=== PATIENT | male | born 1945 | race Caucasian/White ===

== ENCOUNTER 2016-04-19 22:12 | Inpatient (IN) | payer MEDICARE, BC ==
[2016-04-19 22:50] LABS: Anisocytosis Slight; Basophils % (A) 0 %; CH 25.7; CHCM 31.3; Eosinophils % (A) 0 %; HCT 41.9 % (39.0-53.0); HDW 2.81; HGB 12.8 gm/dL (13.0-17.5); Hypochromasia Slight; Luc # (Auto) 0.13; Luc % (Auto) 1; Lymphocytes # (A) 1.3 k/uL (1.0-4.8); Lymphocytes % (A) 10 %; MCH 25.1 pg (25.0-35.0); MCHC 30.6 g/dL (31.0-37.0); MCV 82.3 fL (80.0-100.0); Mean Platelet Volume 6.8; Monocytes # (A) 0.5 k/uL (0-1.0); Monocytes % (A) 4 %; Neutrophils # (A) 10.6 k/uL (1.3-7.7); Neutrophils % (A) 84 %; RDW 16.4 % (11.5-15.5); WBC 12.7 k/uL (3.8-10.6); WBC (Perox) 12.77
--- NOTE | 2016-04-19 22:50 | ED ---
General Adult HPI - General Chief complaint: Upper Respiratory Infection Stated complaint: coughing up blood Time Seen by Provider: 04/19/16 22:17 Source: patient, family, EMS, RN notes reviewed Mode of arrival: EMS Limitations: altered mental status - History of Present Illness Initial comments: Patient is a pleasant 70-year-old male presenting to the emergency department for hemoptysis. Onset was today. Patient has had several episodes. No other areas of bleeding. Patient denies shortness of breath. Patient does take Coumadin for atrial fibrillation. No recent change in dosage. No fevers. No upper respiratory symptoms. Patient is a poor historian and majority of history is taken from family. - Related Data Home Medications Medication Instructions Recorded Confirmed Aspirin 325 mg PO DAILY 11/23/13 04/14/16 Cholecalciferol [Vitamin D3] 1 tab PO DAILY 11/23/13 04/14/16 Lovastatin 2 tab PO HS 11/23/13 04/14/16 Warfarin Sodium 2.5 mg PO DAILY 11/23/13 04/14/16 clonazePAM [KlonoPIN] 0.5 mg PO HS 11/23/13 04/14/16 Digoxin 250 mcg PO DAILY 04/14/16 04/14/16 Fludrocortisone [Florinef] 0.1 mg PO DAILY 04/14/16 04/14/16 Krill Oil 1,000 mg PO DAILY 04/14/16 04/14/16 Allergies Allergy/AdvReac Type Severity Reaction Status Date / Time Penicillins Allergy Rash/Hives Verified 04/14/16 08:56 Review of Systems ROS Statement: Those systems with pertinent positive or pertinent negative responses have been documented in the HPI. ROS Other: All systems not noted in ROS Statement are negative. Constitutional: Denies: fever, chills Eyes: Denies: eye pain ENT: Denies: ear pain Respiratory: Reports: cough, hemoptysis Cardiovascular: Denies: chest pain Endocrine: Denies: fatigue Gastrointestinal: Denies: abdominal pain Genitourinary: Denies: dysuria Musculoskeletal: Denies: back pain Skin: Denies: rash Neurological: Denies: weakness Past Medical History Past Medical History: Atrial Fibrillation, Chest Pain / Angina, COPD, Hyperlipidemia, Hypertension, Prostate Disorder Additional Past Medical History / Comment(s): FEELS WEAK History of Any Multi-Drug Resistant Organisms: None Reported Past Surgical History: Heart Catheterization, Pacemaker Additional Past Surgical History / Comment(s): CARDIOVERSION X2; [facility] [employer] Past Anesthesia/Blood Transfusion Reactions: No Reported Reaction Type of Cardiac Device: Permanent Pacemaker Device Placement Date:: 01/2013 Past Psychological History: No Psychological Hx Reported Smoking Status: Current every day smoker Past Alcohol Use History: Rare Past Drug Use History: None Reported - Past Family History Mother Family Medical History: No Reported History General Exam Limitations: no limitations General appearance: alert, in no apparent distress Head exam: Present: atraumatic Eye exam: Present: normal appearance, PERRL ENT exam: Present: normal oropharynx Neck exam: Present: normal inspection Respiratory exam: Present: normal lung sounds bilaterally Cardiovascular Exam: Present: irregular rhythm GI/Abdominal exam: Present: soft. Absent: tenderness Extremities exam: Present: normal inspection. Absent: pedal edema, calf tenderness Neurological exam: Present: alert Psychiatric exam: Present: normal affect, normal mood Skin exam: Absent: rash Course Vital Signs 04/19/16 22:26 Temperature 97.8 F Pulse Rate 102 H Respiratory 16 Rate Blood Pressure 173/91 O2 Sat by Pulse 97 Oximetry EKG Findings - EKG Comments: EKG Findings:: A. fib with a rate of 97. QRS 80. QT 314. QTC 398. Normal axis. Normal QRS. Nonspecific ST-T. Motion artifact is present. Medical Decision Making - Medical Decision Making Patient reevaluated and updated. Case discussed with practitioner Evon, who will admit for Dr. Real, covering for Dr. Antunez - Lab Data Result diagrams: 04/19/16 22:30 04/19/16 22:30 Lab Results 04/19/16 04/19/16 04/19/16 Range/Units 22:30 22:30 22:30 WBC 12.7 H (3.8-10.6) k/uL RBC 5.10 (4.30-5.90) m/uL Hgb 12.8 L (13.0-17.5) gm/dL Hct 41.9 (39.0-53.0) % MCV 82.3 (80.0-100.0) fL MCH 25.1 (25.0-35.0) pg MCHC 30.6 L (31.0-37.0) g/dL RDW 16.4 H (11.5-15.5) % Plt Count 249 (150-450) k/uL Neutrophils % 84 % Lymphocytes % 10 % Monocytes % 4 % Eosinophils % 0 % Basophils % 0 % Neutrophils # 10.6 H (1.3-7.7) k/uL Lymphocytes # 1.3 (1.0-4.8) k/uL Monocytes # 0.5 (0-1.0) k/uL Eosinophils # 0.0 (0-0.7) k/uL Basophils # 0.0 (0-0.2) k/uL Hypochromasia Slight Anisocytosis Slight PT 36.7 H (9.0-12.0) sec INR 3.8 (<1.1) APTT 38.4 H (22.0-30.0) sec Sodium 141 (137-145) mmol/L Potassium 3.6 (3.5-5.1) mmol/L Chloride 104 (98-107) mmol/L Carbon Dioxide 25 (22-30) mmol/L Anion Gap 12 mmol/L BUN 14 (9-20) mg/dL Creatinine 0.80 (0.66-1.25) mg/dL Est GFR (MDRD) Af Amer >60 (>60 ml/min/1.73 sqM) Est GFR (MDRD) Non-Af >60 (>60 ml/min/1.73 sqM) Glucose 95 (74-99) mg/dL Calcium 9.1 (8.4-10.2) mg/dL Total Bilirubin 1.1 (0.2-1.3) mg/dL AST 55 (17-59) U/L ALT 55 (21-72) U/L Alkaline Phosphatase 96 (38-126) U/L Total Protein 6.4 (6.3-8.2) g/dL Albumin 2.9 L (3.5-5.0) g/dL Urine Color Urine Appearance (Clear) Urine pH (5.0-8.0) Ur Specific [place] (1.001-1.035) Urine Protein (Negative) Urine Glucose (UA) (Negative) Urine Ketones (Negative) Urine Blood (Negative) Urine Nitrate (Negative) Urine Bilirubin (Negative) Urine Urobilinogen (<2.0) mg/dL Ur Leukocyte Esterase (Negative) Urine RBC (0-5) /hpf Urine WBC (0-5) /hpf Calcium Oxalate Crystal (None) /hpf Urine Bacteria (None) /hpf Urine Mucus (None) /hpf 04/19/16 Range/Units 22:30 WBC (3.8-10.6) k/uL RBC (4.30-5.90) m/uL Hgb (13.0-17.5) gm/dL Hct (39.0-53.0) % MCV (80.0-100.0) fL MCH (25.0-35.0) pg MCHC (31.0-37.0) g/dL RDW (11.5-15.5) % Plt Count (150-450) k/uL Neutrophils % % Lymphocytes % % Monocytes % % Eosinophils % % Basophils % % Neutrophils # (1.3-7.7) k/uL Lymphocytes # (1.0-4.8) k/uL Monocytes # (0-1.0) k/uL Eosinophils # (0-0.7) k/uL Basophils # (0-0.2) k/uL Hypochromasia Anisocytosis PT (9.0-12.0) sec INR (<1.1) APTT (22.0-30.0) sec Sodium (137-145) mmol/L Potassium (3.5-5.1) mmol/L Chloride (98-107) mmol/L Carbon Dioxide (22-30) mmol/L Anion Gap mmol/L BUN (9-20) mg/dL Creatinine (0.66-1.25) mg/dL Est GFR (MDRD) Af Amer (>60 ml/min/1.73 sqM) Est GFR (MDRD) Non-Af (>60 ml/min/1.73 sqM) Glucose (74-99) mg/dL Calcium (8.4-10.2) mg/dL Total Bilirubin (0.2-1.3) mg/dL AST (17-59) U/L ALT (21-72) U/L Alkaline Phosphatase (38-126) U/L Total Protein (6.3-8.2) g/dL Albumin (3.5-5.0) g/dL Urine Color Yellow Urine Appearance Cloudy (Clear) Urine pH 5.5 (5.0-8.0) Ur Specific [place] 1.018 (1.001-1.035) Urine Protein Trace H (Negative) Urine Glucose (UA) Negative (Negative) Urine Ketones Negative (Negative) Urine Blood Small H (Negative) Urine Nitrate Negative (Negative) Urine Bilirubin Negative (Negative) Urine Urobilinogen 2.0 (<2.0) mg/dL Ur Leukocyte Esterase Negative (Negative) Urine RBC 9 H (0-5) /hpf Urine WBC 6 H (0-5) /hpf Calcium Oxalate Crystal Few H (None) /hpf Urine Bacteria Rare H (None) /hpf Urine Mucus Few H (None) /hpf - Radiology Data Radiology results: image reviewed (Chest x-ray shows moderate right-sided effusion) Disposition Clinical Impression: Hemoptysis, Pleural effusion Disposition: ADMITTED IP TO THIS HOSP
[2016-04-19 22:58] LABS: Partial Thromboplastin Time 38.4 sec (22.0-30.0)
[2016-04-19 23:00] LABS: ALT 55 U/L (21-72); AST 55 U/L (17-59); Alkaline Phosphatase 96 U/L (38-126); Anion Gap 12 mmol/L; Blood Urea Nitrogen 14 mg/dL (9-20); Calcium 9.1 mg/dL (8.4-10.2); Carbon Dioxide 25 mmol/L (22-30); Chloride 104 mmol/L (98-107); Glucose 95 mg/dL (74-99); INR 3.8 (<1.1); Non-African American GFR(MDRD) >60 (>60 ml/min/1.73 sqM); Potassium 3.6 mmol/L (3.5-5.1); Prothrombin Time 36.7 sec (9.0-12.0); Sodium 141 mmol/L (137-145); Total Bilirubin 1.1 mg/dL (0.2-1.3); Total Protein 6.4 g/dL (6.3-8.2)
[2016-04-19 23:16] LABS: Creatine Kinase <20 U/L (55-170)
--- NOTE | 2016-04-19 23:19 | XR ---
Exam: XR CXR 2 VIEWS Comparison: No comparison available at the time of interpretation. History: Reason: difficulty breathing Technique: CHEST FRONTAL + LATERAL FINDINGS: Vascular stents in the mid abdomen. leads of left pacer project over the regions of right atrium and right ventricle. Moderate to large right pleural effusion with compressive atelectasis. Cardiomediastinal contour and hilar structures are within normal limits. Osseous structures are within normal limits for the patient's age. IMPRESSION: Moderate to large right pleural effusion with compressive atelectasis.
[2016-04-19 23:25] LABS: Appearance,Urine Cloudy (Clear); Bacteria,Urine Rare /hpf; Bilirubin,Urine Negative (Negative); Calcium Oxalate Crystals,Urine Few /hpf; Glucose,Urine (UA) Negative (Negative); Ketones,Urine Negative (Negative); Leukocyte Esterase,Urine Negative (Negative); Mucus,Urine Few /hpf; Nitrite,Urine Negative (Negative); PH, Urine 5.5 (5.0-8.0); Particle Count 7201; Protein,Urine Trace (Negative); RBC,Urine 9 /hpf (0-5); Specific Gravity,Urine 1.018 (1.001-1.035); UA Billing (MACRO vs. MICRO) MICRO; WBC,Urine 6 /hpf (0-5)
[2016-04-19 23:30] LABS: Creatine Kinase MB 0.4 ng/mL (0.0-2.4); Troponin I 0.012 ng/mL (0.000-0.034)
[2016-04-19] MEDS ORDERED: NALOXONE 0.4 MG/ML 1 ML VIAL IV PRN (23:31)
[2016-04-19] MEDS ORDERED: PHYTONADIONE 2 MG in SODIUM CHLORIDE 0.9% 50 ML IVPB STA (23:33)
[2016-04-19] MEDS ORDERED: RX INFO: IV CONTRAST WAS GIVEN 1 EACH MISC MISCELLANE PRN (23:34)
--- NOTE | 2016-04-20 00:56 | CT ---
EXAM: CT Chest With Intravenous Contrast. CLINICAL HISTORY: Reason: Hemoptysis TECHNIQUE: Axial computed tomography images of the chest with intravenous contrast. Coronal and sagittal reformats were obtained. CTDI is 8.00 MGy and DLP is 337.70 MGy-cm COMPARISON: Chest x-ray 04/19/2016 FINDINGS: Lungs: New heterogeneous hyperdense masslike opacity in the posterior right lower lobe,, measuring approximately 8.7 x 6.3 cm (4/28). Findings are suspicious for pulmonary hemorrhage. Adjacent right lower lobe opacities, favor atelectasis but correlate for pneumonia. Centrilobular emphysema. Pleural space: New moderate right pleural effusion with simple fluid attenuation. Heart: Cardiomegaly. Small pericardial effusion. Bones/joints: No acute fracture. Soft tissues: Bilateral gynecomastia. Vasculature: Partially imaged [id number] stent graft. No thoracic aortic aneurysm. Lymph nodes: Unremarkable. No enlarged lymph nodes. Spleen: Splenomegaly. Kidneys and ureters: Several hypodensities in the kidneys, some compatible with cysts and some too small to characterize. IMPRESSION: 1. New heterogeneous hyperdense masslike opacity in the posterior right lower lobe, measuring approximately 8.7 x 6.3 cm (4/28). Findings are suspicious for pulmonary hemorrhage. 2. New moderate right pleural effusion with simple fluid attenuation. 3. Cardiomegaly. Small pericardial effusion. [employer] 04/20/16 00:59 Call Nurse GLENNA Saldivar
[2016-04-20 06:55] LABS: Glucose,Whole Blood 87 mg/dL (75-99)
[2016-04-20 07:21] LABS: Anisocytosis Slight; Basophils % (A) 0 %; CHCM 31.8; Eosinophils % (A) 0 %; HCT 36.4 % (39.0-53.0); HGB 11.4 gm/dL (13.0-17.5); Hypochromasia Slight; Luc # (Auto) 0.18; Luc % (Auto) 2; Lymphocytes # (A) 1.2 k/uL (1.0-4.8); Lymphocytes % (A) 11 %; MCH 25.8 pg (25.0-35.0); MCHC 31.5 g/dL (31.0-37.0); MCV 82.1 fL (80.0-100.0); Mean Platelet Volume 7.4; Monocytes # (A) 0.5 k/uL (0-1.0); Monocytes % (A) 5 %; Neutrophils # (A) 8.4 k/uL (1.3-7.7); Neutrophils % (A) 82 %; RBC 4.43 m/uL (4.30-5.90); RDW 16.4 % (11.5-15.5); WBC 10.2 k/uL (3.8-10.6); WBC (Perox) 11.01
[2016-04-20 07:36] LABS: INR 2.2 (<1.1); Prothrombin Time 20.7 sec (9.0-12.0)
[2016-04-20] MEDS: PANTOPRAZOLE 40 MG/10 ML VIAL IV SCH (09:12)
[2016-04-20 12:04] LABS: Glucose,Whole Blood 87 mg/dL (75-99)
[2016-04-20] MEDS ORDERED: RX INFO: IV CONTRAST WAS GIVEN 1 EACH MISC MISCELLANE PRN (12:07)
[2016-04-20] MEDS ORDERED: LEVOFLOXACIN 500MG-D5W PMX 500 MG in DEXTROSE/WATER 1 100ML.BAG IVPB SCH (12:15)
[2016-04-20] MEDS: DIGOXIN 250 MCG TAB PO SCH (13:03)
[2016-04-20] MEDS: SODIUM CHLORIDE 0.9% 1,000 ML IV SCH (13:03)
[2016-04-20] MEDS: FLUDROCORTISONE 0.1 MG TAB PO SCH (13:03)
--- NOTE | 2016-04-20 14:24 | P.CNPUL ---
History of Present Illness Consult date: 04/20/16 Reason for consult: pleural effusion History of present illness: Every 1-year-old male patient, known history of COPD, known history of chronic smoking, coming in with few episodes of hemoptysis. The patient has lost approximately 40 pounds over the past 5 months. He is coughing out minimal amount of mucus on and off however his condition had changed when he started having some hemoptysis. There is a vague history of trauma and fall yet there is no major injury over his chest nor there is any area of bruising. He is a poor historian in general. A CAT scan of the chest was done in the emergency department and it showed a loculated right-sided pleural effusion and there is a cutoff sign in the distal right mainstem bronchus/bronchus intermedius area and New heterogeneous hyperdense masslike opacity in the posterior right lower lobe, measuring approximately 8.7 x 6.3 cm . This finding is suspicious for lung cancer and the possibility of pulmonary hemorrhage is less likely. Noted the patient's INR was at 3.8 at time of admission is currently down to 2.2. We' ll hold off his anticoagulation and given vitamin K. The plan is to proceed with a diagnostic thoracentesis of the right lung to be followed by bronchoscopy. He has no significant shortness of breath at this point. He is on no oxygen. No chills. No fever. No chest pain. His mentation is alert oriented to place and people Review of Systems Further review of system was done and the positive findings are almost above in history of present illness. The patient has lost significant amount of weight that is estimated to be at least 40 pounds over the past 6 months to a year. Past Medical History Past Medical History: Atrial Fibrillation, COPD, Hyperlipidemia, Hypertension, Prostate Disorder Additional Past Medical History / Comment(s): COPD, hypertension, hyperlipidemia , restless leg syndrome, chronic 2 fibrillation, long-term articulation with warfarin, REM behavioral disorder, history of pacemaker insertion. History of Any Multi-Drug Resistant Organisms: None Reported Past Surgical History: Heart Catheterization, Pacemaker Additional Past Surgical History / Comment(s): CARDIOVERSION X2; [employer] Past Anesthesia/Blood Transfusion Reactions: No Reported Reaction Type of Cardiac Device: Permanent Pacemaker Device Placement Date:: 01/2013 Past Psychological History: No Psychological Hx Reported Smoking Status: Current every day smoker Past Alcohol Use History: Rare Past Drug Use History: None Reported - Past Family History Mother Family Medical History: No Reported History Medications and Allergies Home Medications Medication Instructions Recorded Confirmed Type Cholecalciferol [Vitamin D3] 1,000 units PO DAILY 11/23/13 04/20/16 History Lovastatin 80 mg PO HS 11/23/13 04/20/16 History Warfarin Sodium 2.5 mg PO DAILY 11/23/13 04/20/16 History clonazePAM [KlonoPIN] 0.5 mg PO HS 11/23/13 04/20/16 History Digoxin 250 mcg PO DAILY 04/14/16 04/20/16 History Fludrocortisone [Florinef] 0.1 mg PO DAILY 04/14/16 04/20/16 History Krill Oil 1,000 mg PO DAILY 04/14/16 04/20/16 History Aspirin EC [Ecotrin Low Dose] 81 mg PO DAILY 04/20/16 04/20/16 History Allergies Allergy/AdvReac Type Severity Reaction Status Date / Time Penicillins Allergy Rash/Hives Verified 04/20/16 08:26 Physical Exam Vitals: Vital Signs Temp Pulse Pulse Resp BP BP Pulse Ox 04/20/16 08:00 15 04/20/16 07:00 98.7 F 87 18 122/65 95 04/20/16 00:56 98.3 F 97 16 141/64 98 04/19/16 23:49 97 16 135/78 98 Intake and Output 04/19/16 04/20/16 04/20/16 22:59 06:59 14:59 Other: Voiding Method Urinal # Voids 2 2 Head exam was generally normal. There was no scleral icterus or corneal arcus. Mucous membranes were moist.Neck was supple and without jugular venous distension, thyromegaly, or carotid bruits. Carotids were easily palpable bilaterally. There was no adenopathy. Lung sounds are diminished in the right lung base along with some dullness to percussion.Cardiac exam revealed the PMI to be normally situated and sized. The rhythm was regular and no extrasystoles were noted during several minutes of auscultation. The first and second heart sounds were normal and physiologic splitting of the second heart sound was noted. There were no murmurs, rubs, clicks, or gallops.Abdominal exam revealed normal bowel sounds. The abdomen was soft, non-tender, and without masses, organomegaly, or appreciable enlargement of the abdominal aorta.Examination of the extremities revealed easily palpable radial, femoral and pedal pulses. There was no cyanosis, clubbing or edema. Results - Laboratory Findings CBC and BMP: 04/20/16 06:52 04/19/16 22:30 PT/INR, D-dimer PT 20.7 sec (9.0-12.0) H 04/20/16 06:50 INR 2.2 (<1.1) 04/20/16 06:50 Abnormal lab findings: Abnormal Labs 04/20/16 04/20/16 06:50 06:52 Hgb 11.4 L Hct 36.4 L RDW 16.4 H Neutrophils # 8.4 H PT 20.7 H - Diagnostic Findings Chest x-ray: image reviewed CT scan - chest: image reviewed Assessment and Plan Plan: Impression 1 complex heterogeneous right lung mass with a cutoff sign of the distal right mainstem bronchus/bronchus intermedius and a loculated right-sided pleural effusion. The patient presented with hemoptysis. Rule out primary bronchogenic cancer causing obstruction of distal right mainstem bronchus/ bronchus intermedius. Rule out malignant pleural effusion. Less likely possibilities are traumatic hemorrhage within the pleural space. I am in favor of malignancies especially the patient has lost significant amount of weight and he has the risk factors. 2 COPD 3 hemoptysis 4 weight-loss 5 REM behavioral disorder 6 restless leg syndrome 7 BPH 8 chronic atrial fibrillation 9 COPD 10 hypertension 11 pacemaker insertion 12 dementia Plan Stop warfarin. Give the patient 10 of vitamin K. Reverse the coagulopathy. Obtain a consent for thoracentesis will be done tomorrow. This needs to be also followed up by bronchoscopy and airway inspection of the distal right mainstem bronchus. As the family is agreeable and the patient is agreeable to proceed with the procedures tomorrow the first being a right-sided thoracentesis. The priority will now be to reverse his coagulopathy and proceed with the procedures following that.
[2016-04-20] MEDS ORDERED: PHYTONADIONE ORAL 5 MG/5 ML ORAL.SYRG PO STA (14:31)
[2016-04-20 17:04] LABS: Glucose,Whole Blood 89 mg/dL (75-99)
[2016-04-20] MEDS: HYDROmorphone 1 MG/ML 1 ML SYRINGE IVP PRN (19:18)
--- NOTE | 2016-04-20 20:11 | HP ---
DATE OF ADMISSION: 04/19/2016 CHIEF COMPLAINT: Hemoptysis. HISTORY OF PRESENT ILLNESS: This 70-year-old gentleman with past medical history of atrial fibrillation, history of chest pain, COPD, hypertension, hyperlipidemia, history of prostate disorder being followed by Dr. Juan José Archuleta in the outpatient setting not feeling well over the past couple of days. The patient had some shortness of breath. The patient presented to [facility] Emergency Room Department with significant hemoptysis. The patient is confused and unable to give a coherent history. Most of the history taken from my discussion with staff and review of chart. The patient apparently is taking Coumadin for atrial fibrillation also. The patient is on a mild Coumadin coagulopathy of 3.8. Of note, the chest x-ray showed significant lesion in the right lower lobe and a CAT scan of the chest was followed up and showed new heterogeneous hyperdense masslike opacity in the posterior right lobe measuring approximately 8.7, x 6.3 centimeters. The findings were thought to be suspicious of pulmonary hemorrhage. New moderate right pleural effusion is also noted. Cardiomegaly and a small pericardial effusion also noted. There is no history of fever, rigors or chills. No history of headache, loss of consciousness or seizures. PAST MEDICAL HISTORY: 1. History of atrial fibrillation. 2. History of chest pain. 3. History of COPD. 4. Hypertension. 5. Hyperlipidemia. 6. History of prostate disorder. 7. History of cardiac catheterization and cardioversion. Medications prior to admission include home medications are: 1. Klonopin 0.5 mg q.h.s. 2. Coumadin 2.5 mg daily. 3. Lovastatin 80 mg q.h.s. 5. Florinef 0.1 daily. 6. Digoxin 250 mcg p.o. daily. 7. Vitamin D3 1000 daily. 8. Ecotrin 81 mg. ALLERGIES: PENICILLIN. FAMILY HISTORY: No history of heart disease or strokes in the family. SOCIAL HISTORY: History of smoking currently. No history of alcohol intake. REVIEW OF SYSTEMS: ENT: Diminished vision, diminished hearing. CARDIOVASCULAR: As mentioned earlier. RESPIRATORY: As mentioned earlier. GI: No nausea. : No dysuria. Nervous system: No numbness, weakness. ALLERGY/IMMUNOLOGY: No asthma or hayfever. MUSCULOSKELETAL: As mentioned earlier. HEMATOLOGY/ONCOLOGY: As mentioned earlier. ENDOCRINE: No history of diabetes, hypothyroidism. CONSTITUTIONAL: As mentioned earlier. DERMATOLOGY: negative. RHEUMATOLOGY: Negative. PSYCHIATRY: As mentioned earlier. PHYSICAL EXAMINATION: The patient is alert and oriented times three. Pulse 87, blood pressure 122/65, respiratory rate 18, temperature 98.7, pulse ox 94% on 2 liters. HEENT: Conjunctivae pale. Oral mucosa moist. NECK: No jugular venous distention. No carotid bruit. No lymph node enlargement. CARDIOVASCULAR: S1, S2 muffled. No S3, no S4. RESPIRATORY: Breath sounds diminished at the bases. Bilateral scattered rhonchi and crackles. Breath sounds are diminished in the right lower part. No bronchial breath sounds heard. ABDOMEN: Soft, nontender. No mass palpable. Legs: No edema no swelling. Nervous system: Higher function as mentioned earlier. Moves all 4 limbs. No focal motor or sensory deficits. LYMPHATICS: No lymph nodes palpable in in the neck, axillae or groin. SKIN: No ulcer, rash or bleeding. LABS: WBC 3.7, hemoglobin is 12.8. INR is 3.8. UA noted. ASSESSMENT: 1. Hemoptysis with possible pulmonary hemorrhage, rule out malignancy or pneumonia. 2. Possible right lower pneumonia consider Gram-negative. 3. Change in mental status, metabolic encephalopathy, multifactorial. 4. Increased WBC. 5. Anemia, normocytic. 6. Coumadin coagulopathy, present on admission. 7. Atrial fibrillation. 8. Coumadin monitoring. 9. Hypoalbuminemia with mild to moderate protein calorie malnutrition. Rule out urinary tract infection. 10. History of atrial fibrillation. 11. History of chronic obstructive pulmonary disease. 12. Hypertension. 13. Hyperlipidemia. 14. History of prostate disorder. 15. History of pacemaker. 16. Continued ongoing nicotine dependence. 17. FULL CODE. RECOMMENDATIONS AND DISCUSSION: In this 70-year-old gentleman who presented with multiple complex medical issues, we will monitor the patient closely. Continue with the current medications. Continue symptomatic treatment. Otherwise, Vitamin K has been given. The INR is improving. Hemoptysis is improving. I would recommend empiric antibiotics also. Closely follow with Dr. Ochoa and Dr. Messina. Bronchodilators. Monitor PT and INR closely. Guarded prognosis because of multiple complex medical issues and I would also recommend a CT scan of the brain also to complete the work-up. Otherwise, repeat labs will be done. Discussed with the patient. Discussed with Samh. Further recommendations to follow. A copy of dictation being forwarded to Dr. Archuleta who is the primary care physician. DESTIN
[2016-04-20 20:47] LABS: Glucose,Whole Blood 100 mg/dL (75-99)
[2016-04-20] MEDS: clonazePAM 0.5 MG TAB PO SCH (21:08)
[2016-04-20] MEDS: ATORVASTATIN 20 MG TAB PO SCH (21:08)
[2016-04-21] MEDS: HYDROmorphone 1 MG/ML 1 ML SYRINGE IVP PRN (01:44)
[2016-04-21] MEDS: SODIUM CHLORIDE 0.9% 1,000 ML IV SCH (01:47)
[2016-04-21 07:10] LABS: Glucose,Whole Blood 86 mg/dL (75-99)
[2016-04-21 07:14] LABS: Anisocytosis Slight; Basophils % (A) 0 %; CHCM 31.8; Eosinophils % (A) 0 %; HCT 35.2 % (39.0-53.0); HDW 2.89; HGB 10.8 gm/dL (13.0-17.5); Hypochromasia Slight; Luc # (Auto) 0.13; Luc % (Auto) 1; Lymphocytes % (A) 11 %; MCH 25.2 pg (25.0-35.0); MCHC 30.7 g/dL (31.0-37.0); Mean Platelet Volume 7.6; Monocytes # (A) 0.5 k/uL (0-1.0); Monocytes % (A) 5 %; Neutrophils # (A) 7.6 k/uL (1.3-7.7); Neutrophils % (A) 82 %; RBC 4.29 m/uL (4.30-5.90); RDW 16.4 % (11.5-15.5); WBC 9.2 k/uL (3.8-10.6); WBC (Perox) 9.96
[2016-04-21 07:24] LABS: INR 1.6 (<1.1); Prothrombin Time 15.7 sec (9.0-12.0)
[2016-04-21 07:31] LABS: Anion Gap 10 mmol/L; Blood Urea Nitrogen 12 mg/dL (9-20); Calcium 8.8 mg/dL (8.4-10.2); Carbon Dioxide 27 mmol/L (22-30); Chloride 103 mmol/L (98-107); Glucose 92 mg/dL (74-99); Non-African American GFR(MDRD) >60 (>60 ml/min/1.73 sqM); Potassium 3.5 mmol/L (3.5-5.1); Sodium 140 mmol/L (137-145)
[2016-04-21] MEDS: CHOLECALCIFEROL 1,000 UNIT TAB PO SCH (10:06)
[2016-04-21] MEDS: DIGOXIN 250 MCG TAB PO SCH (10:06)
[2016-04-21] MEDS: FLUDROCORTISONE 0.1 MG TAB PO SCH (10:06)
[2016-04-21 11:50] LABS: Glucose,Whole Blood 85 mg/dL (75-99)
[2016-04-21] MEDS: PANTOPRAZOLE 40 MG/10 ML VIAL IV SCH (11:51)
[2016-04-21] MEDS: LEVOFLOXACIN 500 MG TAB PO SCH (11:51)
[2016-04-21] MEDS: TAMSULOSIN 0.4 MG CAP.ER.24H PO SCH (11:51)
--- NOTE | 2016-04-21 13:10 | CT ---
EXAMINATION TYPE: CT brain wo con DATE OF EXAM: 04/21/2016 11:43 AM COMPARISON: 02/01/2010 INDICATION: Possible brain mets DLP: 1054.2 mGycm, Automated exposure control for dose reduction was used. CONTRAST: None CT of the brain is performed utilizing 3 mm thick sections through the posterior fossa and 3 mm thick sections through the remaining calvarium. Study is performed within 24 hours of arrival to the hosp [facility]. No abnormal hyperdensity is present to suggest an acute intracranial hemorrhage. No mass lesion is evident. No acute infarcts are evident. There is periventricular white matter hypodensity, likely on the basis of chronic white matter ischemic changes. No suspicious vasogenic edema is evident. Ventricles and sulci are prominent for the patient age. Paranasal sinuses and mastoid air cells within the [id number] are clear. IMPRESSIONS: 1. Atrophy with chronic appearing periventricular white matter ischemic changes. 2. Atrophy and chronic white matter changes are progressive from the 2009 comparison
--- NOTE | 2016-04-21 13:58 | P.PN ---
Subjective Principal diagnosis: Right lung pleural effusion 70-year-old male patient, known history of COPD, known history of chronic smoking, coming in with few episodes of hemoptysis. The patient has lost approximately 40 pounds over the past 5 months. He is coughing out minimal amount of mucus on and off however his condition had changed when he started having some hemoptysis. There is a vague history of trauma and fall yet there is no major injury over his chest nor there is any area of bruising. He is a poor historian in general. A CAT scan of the chest was done in the emergency department and it showed a loculated right-sided pleural effusion and there is a cutoff sign in the distal right mainstem bronchus/bronchus intermedius area and New heterogeneous hyperdense masslike opacity in the posterior right lower lobe, measuring approximately 8.7 x 6.3 cm . This finding is suspicious for lung cancer and the possibility of pulmonary hemorrhage is less likely. Noted the patient's INR was at 3.8 at time of admission is currently down to 2.2. We' ll hold off his anticoagulation and given vitamin K. The plan is to proceed with a diagnostic thoracentesis of the right lung to be followed by bronchoscopy. The patient is seen again today in follow-up 04/21/2016 on the regular medical floor. He is awake and alert in no acute distress. He denies any worsening shortness of breath, cough or congestion. His INR is currently 1.6. He has been afebrile. No leukocytosis. He is maintaining good O2 saturations in the mid 90s on room air. A thoracentesis was done today at the bedside. Approximately 600 mL's of serosanguineous fluid was removed. Objective - Vital Signs Vital signs: Vital Signs Temp 96.9 F L 04/21/16 07:00 Pulse 60 04/21/16 08:00 Resp 16 04/21/16 08:00 BP 169/82 04/21/16 07:00 Pulse Ox 96 04/21/16 07:00 Intake & Output 04/20/16 04/21/16 04/21/16 18:59 06:59 18:59 Intake Total 120 240 Output Total 550 Balance 120 -550 240 Intake: Oral 120 240 Output: Urine 550 Straight 550 Other: Voiding Method Urinal Urinal Urinal # Voids 5 1 - Exam GENERAL EXAM: Cachectic. Alert, comfortable in no apparent distress. HEAD: Normocephalic. EYES: Normal reaction of pupils, equal size. NOSE: Clear with pink turbinates. THROAT: No erythema or exudates. NECK: No masses, no JVD. CHEST: No chest wall deformity. LUNGS: Diminished in the right lung base. CVS: S1 and S2 normal with no audible murmurs, regular rhythm. ABDOMEN: No hepatosplenomegaly, normal bowel sounds, no guarding or rigidity. SPINE: No scoliosis or deformity SKIN: No rashes CENTRAL NERVOUS SYSTEM: No focal deficits, tone is normal in all 4 extremities. Extremities: There is no peripheral edema. No clubbing, no cyanosis. Peripheral pulses are intact. - Labs CBC & Chem 7: 04/21/16 06:42 04/21/16 06:42 Labs: Abnormal Lab Results - Last 24 Hours (Table) 04/20/16 04/21/16 04/21/16 Range/Units 20:05 06:42 06:42 RBC 4.29 L (4.30-5.90) m/uL Hgb 10.8 L (13.0-17.5) gm/dL Hct 35.2 L (39.0-53.0) % MCHC 30.7 L (31.0-37.0) g/dL RDW 16.4 H (11.5-15.5) % PT 15.7 H (9.0-12.0) sec POC Glucose (mg/dL) 100 H (75-99) mg/dL Assessment and Plan Plan: Impression 1 complex heterogeneous right lung mass with a cutoff sign of the distal right mainstem bronchus/bronchus intermedius and a loculated right-sided pleural effusion. The patient presented with hemoptysis. Rule out primary bronchogenic cancer causing obstruction of distal right mainstem bronchus/ bronchus intermedius. Rule out malignant pleural effusion. Less likely possibilities are traumatic hemorrhage within the pleural space. I am in favor of malignancies especially the patient has lost significant amount of weight and he has the risk factors. 2 COPD 3 hemoptysis 4 weight-loss 5 REM behavioral disorder 6 restless leg syndrome 7 BPH 8 chronic atrial fibrillation 9 COPD 10 hypertension 11 pacemaker insertion 12 dementia Plan we'll and The patient was seen and evaluated by Dr. Messina. He did perform a right- sided thoracentesis with proximal a 600 mL's of serosanguineous fluid removed. Not quite clear and not completely bloody. Cytology and cultures are pending. We will also plan on performing a bronchoscopy with biopsies of the right lung with focus of the distal right mainstem bronchus tomorrow. The patient and his are both agreeable to the plan. We will continue to hold warfarin. We will continue to follow and make further recommendations based on his clinical status.
--- NOTE | 2016-04-21 14:13 | PN ---
DATE OF SERVICE: 04/21/2016 This 70-year-old gentleman admitted with hemoptysis, also suspected pulmonary hemorrhage. The patient also had right pleural effusion. Dr. Messina recommended pleural aspiration which the refused apparently. The patient remains confused at this time. A CAT scan of the brain was ordered yesterday which was done without contrast today, showed atrophy with chronic-appearing changes. Otherwise, white matter changes are progressing. No acute stroke is demonstrated. PAST MEDICAL HISTORY: Reviewed. REVIEW OF SYSTEMS: CARDIOVASCULAR: No angina, palpitations. RESPIRATORY: As mentioned earlier. GI: As mentioned earlier. : No dysuria. NERVOUS SYSTEM: Generally weak. Current medications are reviewed and include: Lipitor 20 mg q.h.s., vitamin D3 one thousand daily, Klonopin 0.5 mg q.h.s., digoxin 250 mg p.o. daily, Florinef 0.1 daily, Dilaudid 0.5 q.6 p.r.n., Levaquin 500 mg daily, Ativan 0.5 q.8 p.r.n., Narcan 0.2 q.2 p.r.n., Protonix 40 mg IV daily, Flomax 0.4 daily. PHYSICAL EXAM: Patient is confused. Pulse 60, blood pressure 116/88, respiration 16, temperature is 96.8, pulse ox 96% on room air. HEENT: Conjunctivae normal. NECK: No jugular venous distension. CARDIOVASCULAR: S1, S2, muffled. RESPIRATORY: Breath sounds moderate diminished on the right side. A few scattered rhonchi, no crackles. ABDOMEN: Soft, nontender. EXTREMITIES: Legs no edema, no swelling. NERVOUS SYSTEM: Mild diffuses weakness. LABS: Hemoglobin 10.8. ASSESSMENT: 1. Hemoptysis with possible pulmonary hemorrhage, rule out malignancy or pneumonia. 2. Possible right lower lobe pneumonia, considered. Gram-negative. 3. Right pleural effusion. 4. Change in mental status, metabolic encephalopathy, multifactorial. 5. Coumadin coagulopathy. 6. Increased WBC. 7. Anemia, normocytic. 8. Coumadin monitoring. 9. Atrial fibrillation history. 10. Hypoalbuminemia with mild to moderate protein calorie malnutrition. 11. Rule out urinary tract infection. 12. Change in mental status, metabolic encephalopathy, acute on chronic. 13. History of dementia. 14. History of atrial fibrillation. 15. History of chronic obstructive pulmonary disease. 16. Hypertension. 17. Hyperlipidemia. 18. History of prostate disorder. 19. History of pacemaker. 20. Continued ongoing nicotine dependence. 21. FULL CODE. RECOMMENDATION: Continue the current medications, continue with the symptomatic treatment. Will talk to the family regarding the pleural aspiration. Will continue with the rest of the medication. Monitor INR. Currently it is 1.6. Continue with the rest of the medications. Prognosis guarded because of multiple complex medical issues. Further recommendations to follow. Continue the empiric antibiotics.
--- NOTE | 2016-04-21 14:43 | XR ---
EXAMINATION TYPE: XR chest 1V portable DATE OF EXAM: 04/21/2016 2:04 PM COMPARISON: Prior chest x-ray 19 April 2016 HISTORY: Status post right thoracentesis TECHNIQUE: Single frontal view of the chest is obtained. FINDINGS: There is no evident pneumothorax. No significant interval change compared to prior exam. P atient is rotated. Pacemaker is stable. Persistent opacity at the right lung base. IMPRESSION: No evident complication status post thoracentesis.
[2016-04-21 14:47] LABS: Total Protein 5.2 g/dL (6.3-8.2)
[2016-04-21 15:22] LABS: RBC, Body Fluid 12950 /uL
[2016-04-21 16:59] LABS: Glucose,Whole Blood 91 mg/dL (75-99)
[2016-04-21 20:34] LABS: Glucose,Whole Blood 107 mg/dL (75-99)
[2016-04-21] MEDS: ATORVASTATIN 20 MG TAB PO SCH (21:42)
[2016-04-21] MEDS: clonazePAM 0.5 MG TAB PO SCH (21:42)
[2016-04-21] MEDS: LORazepam 0.5 MG TAB PO PRN (21:43)
[2016-04-22] MEDS: SODIUM CHLORIDE 0.9% 1,000 ML IV SCH ×2 (01:40→13:01)
[2016-04-22 06:57] LABS: Glucose,Whole Blood 88 mg/dL (75-99)
[2016-04-22 07:34] LABS: Anisocytosis Slight; Basophils % (A) 0 %; CH 26.1; CHCM 31.4; Eosinophils % (A) 0 %; HDW 2.81; HGB 12.5 gm/dL (13.0-17.5); Hypochromasia Slight; Luc # (Auto) 0.17; Luc % (Auto) 1; Lymphocytes # (A) 1.1 k/uL (1.0-4.8); Lymphocytes % (A) 9 %; MCH 25.5 pg (25.0-35.0); MCHC 30.6 g/dL (31.0-37.0); MCV 83.5 fL (80.0-100.0); Mean Platelet Volume 7.1; Monocytes # (A) 0.5 k/uL (0-1.0); Monocytes % (A) 4 %; Neutrophils # (A) 10.1 k/uL (1.3-7.7); Neutrophils % (A) 85 %; RBC 4.91 m/uL (4.30-5.90); RDW 16.7 % (11.5-15.5); WBC 11.8 k/uL (3.8-10.6); WBC (Perox) 12.88
[2016-04-22 07:41] LABS: INR 1.5 (<1.1); Prothrombin Time 14.4 sec (9.0-12.0)
[2016-04-22 07:50] LABS: Anion Gap 13 mmol/L; Blood Urea Nitrogen 12 mg/dL (9-20); Calcium 9.1 mg/dL (8.4-10.2); Carbon Dioxide 25 mmol/L (22-30); Chloride 104 mmol/L (98-107); Glucose 82 mg/dL (74-99); Non-African American GFR(MDRD) >60 (>60 ml/min/1.73 sqM); Potassium 3.4 mmol/L (3.5-5.1); Sodium 142 mmol/L (137-145)
--- NOTE | 2016-04-22 07:57 | PCN ---
DATE OF PROCEDURE: PREOPERATIVE DIAGNOSIS: Right side pleural effusion. POSTOPERATIVE DIAGNOSIS: Right side pleural effusion. THORACENTESIS Indication: Pleural effusion. A time-out was completed verifying correct patient, procedure, site, positioning, and implant (s) or special equipment if applicable. Ultrasound guidance was not used and appropriate fluid pocket was identified and marked. Patient was positioned, prepped and draped in usual sterile fashion. Lidocaine was used to anesthetize the area. A Thoracentesis catheter was introduced into the pleural space and fluid was removed. Blood loss was none. A chest x-ray was ordered to evaluate for pneumothorax. Total Fluid Removed: 0.5 L Color of Fluid: Dark turbid yellowish in color. Fluid ( ) sent for appropriate laboratory tests. The total amount of pleural fluid removed from the right lung is 0.5 L. The procedure was terminated after evacuation of 500 mL of pleural fluid that was dark turbid yellowish in color. No bedside complication. Chest x-ray is to follow.
[2016-04-22 11:50] LABS: Glucose,Whole Blood 86 mg/dL (75-99)
[2016-04-22] MEDS: FLUDROCORTISONE 0.1 MG TAB PO SCH (12:08)
[2016-04-22] MEDS: PANTOPRAZOLE 40 MG/10 ML VIAL IV SCH (12:08)
[2016-04-22] MEDS: TAMSULOSIN 0.4 MG CAP.ER.24H PO SCH ×2 (12:08→21:18)
[2016-04-22] MEDS: LEVOFLOXACIN 500 MG TAB PO SCH (12:08)
[2016-04-22] MEDS: CHOLECALCIFEROL 1,000 UNIT TAB PO SCH (13:01)
[2016-04-22] MEDS ORDERED: PROPOFOL 10 MG/ML 20 ML VIAL IV ONE (13:25)
[2016-04-22] MEDS ORDERED: IV FLUID CONTINUATION 1,000 ML IV ONE (13:25)
[2016-04-22] MEDS ORDERED: LIDOCAINE 1% INJ 10MG/ML (20 ML MDV) ONE (13:25)
--- NOTE | 2016-04-22 15:30 | P.PN ---
Subjective 70-year-old male patient, known history of COPD, known history of chronic smoking, coming in with few episodes of hemoptysis. The patient has lost approximately 40 pounds over the past 5 months. He is coughing out minimal amount of mucus on and off however his condition had changed when he started having some hemoptysis. There is a vague history of trauma and fall yet there is no major injury over his chest nor there is any area of bruising. He is a poor historian in general. A CAT scan of the chest was done in the emergency department and it showed a loculated right-sided pleural effusion and there is a cutoff sign in the distal right mainstem bronchus/bronchus intermedius area and New heterogeneous hyperdense masslike opacity in the posterior right lower lobe, measuring approximately 8.7 x 6.3 cm . This finding is suspicious for lung cancer and the possibility of pulmonary hemorrhage is less likely. Noted the patient's INR was at 3.8 at time of admission is currently down to 2.2. We' ll hold off his anticoagulation and given vitamin K. The plan is to proceed with a diagnostic thoracentesis of the right lung to be followed by bronchoscopy. The patient is seen again today in follow-up 04/21/2016 on the regular medical floor. He is awake and alert in no acute distress. He denies any worsening shortness of breath, cough or congestion. His INR is currently 1.6. He has been afebrile. No leukocytosis. He is maintaining good O2 saturations in the mid 90s on room air. A thoracentesis was done today at the bedside. Approximately 600 mL's of serosanguineous fluid was removed. The patient is being seen again in follow-up on 04/22/2016, and the patient is now having no new complaints. No hemoptysis. He underwent a thoracentesis yesterday with total of 600 mL of fluid was aspirated from the right lung. The fluid cytology still pending for now. Meanwhile, due to concern of a lung mass , I'm going to set up this patient for a bronchoscopy for airway inspection and there is a very high consented the patient may have an underlying malignancy. I discussed this with the patient's was very much agreeable to the procedure. The patient is still off anticoagulation. No chest pain. He is nothing by mouth for now awaiting his procedure. Objective - Vital Signs Vital signs: Vital Signs Temp 98.7 F 04/22/16 05:48 Pulse 80 04/22/16 05:48 Resp 16 04/22/16 05:48 BP 154/87 04/22/16 05:48 Pulse Ox 95 04/22/16 05:48 Intake & Output 04/21/16 04/22/16 04/22/16 18:59 06:59 18:59 Intake Total 480 600 Output Total 2800 779 450 Balance -2320 -779 150 Weight 72.575 kg Intake: IV 600 Oral 480 Output: Urine 1050 425 450 Straight 350 425 450 Post Void Residual 354 Stool 1200 Other 550 Other: Voiding Method Urinal Urinal # Voids 1 # Bowel Movements 1 - Exam Head exam was generally normal. There was no scleral icterus or corneal arcus. Mucous membranes were moist.Neck was supple and without jugular venous distension, thyromegaly, or carotid bruits. Carotids were easily palpable bilaterally. There was no adenopathy. Lung sounds are diminished in the right lung base along with some dullness to percussion.Cardiac exam revealed the PMI to be normally situated and sized. The rhythm was regular and no extrasystoles were noted during several minutes of auscultation. The first and second heart sounds were normal and physiologic splitting of the second heart sound was noted. There were no murmurs, rubs, clicks, or gallops.Abdominal exam revealed normal bowel sounds. The abdomen was soft, non-tender, and without masses, organomegaly, or appreciable enlargement of the abdominal aorta.Examination of the extremities revealed easily palpable radial, femoral and pedal pulses. There was no cyanosis, clubbing or edema. - Labs CBC & Chem 7: 04/22/16 06:46 04/22/16 06:46 Labs: Abnormal Lab Results - Last 24 Hours (Table) 04/21/16 04/22/16 04/22/16 Range/Units 20:29 06:46 06:46 WBC 11.8 H (3.8-10.6) k/uL Hgb 12.5 L (13.0-17.5) gm/dL MCHC 30.6 L (31.0-37.0) g/dL RDW 16.7 H (11.5-15.5) % Neutrophils # 10.1 H (1.3-7.7) k/uL PT 14.4 H (9.0-12.0) sec Potassium (3.5-5.1) mmol/L POC Glucose (mg/dL) 107 H (75-99) mg/dL 04/22/16 Range/Units 06:46 WBC (3.8-10.6) k/uL Hgb (13.0-17.5) gm/dL MCHC (31.0-37.0) g/dL RDW (11.5-15.5) % Neutrophils # (1.3-7.7) k/uL PT (9.0-12.0) sec Potassium 3.4 L (3.5-5.1) mmol/L POC Glucose (mg/dL) (75-99) mg/dL Microbiology - Last 24 Hours (Table) 04/21/16 13:43 Body Fluid Culture - Preliminary Pleural Fluid Assessment and Plan Plan: Impression 1 complex heterogeneous right lung mass with a cutoff sign of the distal right mainstem bronchus/bronchus intermedius and a loculated right-sided pleural effusion. The patient presented with hemoptysis. Rule out primary bronchogenic cancer causing obstruction of distal right mainstem bronchus/ bronchus intermedius. Rule out malignant pleural effusion. Less likely possibilities are traumatic hemorrhage within the pleural space. I am in favor of malignancies especially the patient has lost significant amount of weight and he has the risk factors. On 04/22/2016, the patient is being seen in follow-up. The patient already had a diagnostic thoracentesis of the right lung and we are still awaiting the fluid cytology. Meanwhile a bronchoscopy will be done to inspect his right lung with a significant concern of him having a mass in the right main bronchus/ bronchus intermedius area. The patient is nothing by mouth this morning. The patient will be having a procedure later on during the day. 2 COPD 3 hemoptysis, currently inactive 4 weight-loss 5 REM behavioral disorder 6 restless leg syndrome 7 BPH 8 chronic atrial fibrillation 9 COPD 10 hypertension 11 pacemaker insertion 12 dementia Plan Awaiting the pleural fluid cytology. The patient has no specific complaints. We'll proceed with bronchoscopy with airway inspection and necessary biopsies will be done if needed. There is a high consented the patient has an underlying malignancy. The was made aware and will proceed with a bronchoscopy. The patient on no Coumadin and INR from yesterday was down to 1.5.
--- NOTE | 2016-04-22 15:41 | P.PCN ---
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 2 complete atelectasis of the right middle lobe and the right lower lobe, secondary to 1 Procedure(s) Performed: Flexible bronchoscopy, endobronchial biopsies, endobronchial needle aspirate Anesthesia: MAC Surgeon: Yamilet Messina Zipper Ironer #1: Valeri Wolf Estimated Blood Loss (ml): 10 Pathology: other Condition: stable Disposition: floor Operative Findings: This procedure was done under conscious sedation with an acidic it is being administered by anesthesia the bedside. After achieving adequate sedation, the flexible bronchoscope was inserted to the right nostril was advanced upper airway. Examination of the posterior oropharynx, larynx, epiglottis and vocal cords was done. All of these upper airway structures were within normal limits. Epiglottis was within normal. True and false were inspected and there were no abnormalities such as nodules or lesions or paralysis. At this point, a total of 2 ML's of 1% lidocaine was applied to the vocal cords and following that the bronchoscope was advanced into the upper trachea and examination of the tracheal bronchial tree was done. The trachea was within normal limits. The bronchoscope was then moved to the right side and immediately a large endobronchial tumor was seen obstructing the proximal bronchus intermedius just after the uptake of the right upper lobe bronchus. This was a large mass this was occluding the proximal bronchus intermedius. The tumor itself has a very vascular and the surface with irregular. This was a bulky tumor causing complete obstruction of the proximal bronchus intermedius. Under direct visualization, endobronchial needle aspirate of the mass was done using a 19- gauge cytology and 21-gauge histology needle. Adequately of the samples are confirmed by pathology the bedside. Following this, I performed endobronchial biopsies of the mass and chunks of tissue was obtained. There was some minimal amount of bleeding from the tumor surface that stopped spontaneously. I was able then to pass the bronchoscope around this lesion and advanced the bronchoscope to the lower airways. I think was visualizing the various segments of the lower lobe which were quite atelectatic and there were total infiltrated with tumor as the various segments were irregular and replaced by tumor-like material along the surface and causing occlusion of the segments. I met with the bronchoscope back to the main smith. I more the bronchoscope to the left side and I inspected the left mainstem bronchus and left upper lobe and the left lower lobe and the left-sided airways were patent and within normal limits. At this point, the bronchoscope was removed and the procedure was terminated and the patient was sent back to his room in a stable condition. No bedside complications. No significant bleeding encountered. The patient' s pulse ox with above 90% throughout the procedure.
[2016-04-22 16:27] LABS: Glucose,Whole Blood 92 mg/dL (75-99)
--- NOTE | 2016-04-22 17:52 | PN ---
This 70-year-old gentleman admitted with hemoptysis also had significant lesion in the right side. The patient underwent right-sided thoracocentesis with Dr. Messina. About 0.5 L of dark turbid yellow fluid was obtained. Dr. Messina proceeding with bronchoscopy this time. The patient is already on empiric antibiotics. Past medical history reviewed. REVIEW OF SYSTEMS: Could not be taken, the patient is confused. Current medications are reviewed and include: 1. Lipitor 20 mg q.h.s. 2. Vitamin D3 1000 mg. 3. Klonopin 0.5 mg. 4. Lanoxin 0.25 mg daily. 5. Florinef 1 mg daily. 6. Dilaudid 0.5 mg q6h 7. Lactated Ringer's. 8. Levaquin 500 mg daily. 9. Ativan 0.5 mg p.o. daily. 10. Narcan 0.2 q.2 p.r.n. 11. Protonix 40 mg daily. 12. Flomax 0.4 daily. ALLERGIES: Noted. PHYSICAL EXAMINATION: Patient is conscious but confused. Pulse 80. Blood pressure 154/87. Respiratory rate 16. Temperature 98.7. Pulse ox 97% on room air. HEENT: Conjunctivae normal. Oral mucosa moist. NECK: No jugular venous distention. No carotid bruit. No lymph node enlargement. CARDIOVASCULAR: S1, S2 muffled. No S3, no S4. RESPIRATORY: Breath sounds diminished at the bases. A few scattered rhonchi. Breath sounds are markedly diminished in the right side. ABDOMEN: Soft. Nontender. No mass palpable. CENTRAL NERVOUS SYSTEM: Diffusely weak. LABS: WBC 11.2, hemoglobin 12.5, sodium 140, potassium 4.2. ASSESSMENT: 1. Hemoptysis with possible pulmonary hemorrhage, rule out malignancy or pneumonia. 2. Possibly right lower lobe pneumonia, possibly gram-negative. 3. Right pleural effusion, status post aspiration, rule out empyema. 4. Change in mental status, metabolic encephalopathy, multifactorial. 5. Coumadin coagulopathy. 6. Gait dysfunction. 7. Increased WBC. 8. Anemia, normocytic. 9. Coumadin monitoring. 10. Atrial fibrillation history. 11. Hypoalbuminemia with mild to moderate protein calorie malnutrition. 12. Change in mental status, metabolic encephalopathy, acute on chronic. 13. History of dementia. 14. History of atrial fibrillation. 15. History of chronic obstructive pulmonary disease. 16. Hypertension, essential. 17. Hyperlipidemia. 18. History of prostate disorder. 19. History of pacemaker. 20. Continued ongoing nicotine dependence. 21. FULL CODE. RECOMMENDATIONS AND DISCUSSION: I recommend to continue current medications, continue symptomatic treatment. Empiric antibiotics. Repeat labs. Otherwise, follow closely with Dr. Messina for possible bronchoscopy. Otherwise, the fluid only shows 25 poly nucleated WBCs, mostly hemorrhage. The cultures are negative so far. Recommend to continue the current medications. Continue antibiotics. Closely follow. Guarded prognosis. Further recommendations to follow.
[2016-04-22] MEDS: LACTATED RINGERS 1,000 ML IV SCH (18:20)
[2016-04-22 19:47] VITALS: BMI 25.0
[2016-04-22 20:08] LABS: Glucose,Whole Blood 107 mg/dL (75-99)
[2016-04-22] MEDS: clonazePAM 0.5 MG TAB PO SCH (21:18)
[2016-04-22] MEDS: ATORVASTATIN 20 MG TAB PO SCH (21:18)
[2016-04-22] MEDS: LORazepam 0.5 MG TAB PO PRN (23:53)
[2016-04-23 07:30] LABS: Glucose,Whole Blood 94 mg/dL (75-99)
[2016-04-23 08:32] LABS: Anisocytosis Slight; Basophils % (A) 0 %; CH 25.7; CHCM 31.5; Eosinophils % (A) 0 %; HCT 35.7 % (39.0-53.0); HDW 2.74; HGB 11.2 gm/dL (13.0-17.5); Hypochromasia Slight; Luc # (Auto) 0.09; Luc % (Auto) 1; Lymphocytes # (A) 1.1 k/uL (1.0-4.8); Lymphocytes % (A) 8 %; MCH 25.7 pg (25.0-35.0); MCHC 31.3 g/dL (31.0-37.0); Monocytes # (A) 0.6 k/uL (0-1.0); Monocytes % (A) 4 %; Neutrophils % (A) 87 %; RBC 4.35 m/uL (4.30-5.90); RDW 16.5 % (11.5-15.5); WBC 13.7 k/uL (3.8-10.6); WBC (Perox) 14.56
[2016-04-23 08:33] LABS: Anion Gap 10 mmol/L; Blood Urea Nitrogen 11 mg/dL (9-20); Calcium 8.6 mg/dL (8.4-10.2); Carbon Dioxide 27 mmol/L (22-30); Chloride 105 mmol/L (98-107); Glucose 91 mg/dL (74-99); Non-African American GFR(MDRD) >60 (>60 ml/min/1.73 sqM); Sodium 142 mmol/L (137-145)
[2016-04-23 08:38] LABS: INR 1.5 (<1.1); Prothrombin Time 14.8 sec (9.0-12.0)
[2016-04-23] MEDS: PANTOPRAZOLE 40 MG/10 ML VIAL IV SCH (08:46)
[2016-04-23] MEDS: CHOLECALCIFEROL 1,000 UNIT TAB PO SCH (08:47)
[2016-04-23] MEDS: TAMSULOSIN 0.4 MG CAP.ER.24H PO SCH ×2 (08:47→20:37)
[2016-04-23] MEDS: DIGOXIN 250 MCG TAB PO SCH (08:47)
[2016-04-23] MEDS: FLUDROCORTISONE 0.1 MG TAB PO SCH (08:48)
[2016-04-23] MEDS ORDERED: Potassium Replacement Protocol 1 EACH MISC MISCELLANE PRN (09:27)
[2016-04-23] MEDS ORDERED: Magnesium Replacement Protocol 1 EACH MISC MISCELLANE PRN (10:38)
[2016-04-23] MEDS: POTASSIUM CHLORIDE ER 20 MEQ TAB.ER PO SCH ×4 (10:41→17:35)
[2016-04-23] MEDS: MAGNESIUM SULFATE-D5W PMX 1 GM in DEXTROSE/WATER 1 100ML.BAG IVPB SCH ×2 (11:48→13:53)
[2016-04-23] MEDS: LEVOFLOXACIN 500 MG TAB PO SCH (11:49)
[2016-04-23] MEDS: LACTATED RINGERS 1,000 ML IV SCH (13:04)
--- NOTE | 2016-04-23 13:59 | P.CONS ---
History of Present Illness - Reason for Consult Consult date: 04/23/16 lung malignancy Requesting physician: Yamilet Messina - Chief Complaint hemoptysis, general malaize - History of Present Illness Pt is a very pleasantly confused 70 year old male who was experiencing SOB with hemoptysis for at least 3-4 days prior to admission, information is taken from the medical record as pt is unable to tell me much about his recent illness or history. Pt had CT and fount to have mass posterior right lobe with pleural and pericardial effusions noted. No documentation of fevers, ill contacts, other bleeding. Pt states need to urinate-which he is having some difficulty with and is requiring bladder scans- he confirmed that he has lost weight, not sure how much, he is unable to tell me if he has an appetite, staff reports poor oral intake. Pt visibly does not appear to be in any respiratory distress when seen. Review of Systems ROS unobtainable: due to mental status Past Medical History Past Medical History: Atrial Fibrillation, COPD, Hyperlipidemia, Hypertension, Prostate Disorder Additional Past Medical History / Comment(s): COPD, hypertension, hyperlipidemia , restless leg syndrome, chronic 2 fibrillation, long-term articulation with warfarin, REM behavioral disorder, history of pacemaker insertion. History of Any Multi-Drug Resistant Organisms: None Reported Past Surgical History: Heart Catheterization, Pacemaker Additional Past Surgical History / Comment(s): CARDIOVERSION X2; [facility] [employer] [facility] Past Anesthesia/Blood Transfusion Reactions: No Reported Reaction Type of Cardiac Device: Permanent Pacemaker Device Placement Date:: 01/2013 Past Psychological History: No Psychological Hx Reported Smoking Status: Current every day smoker Past Alcohol Use History: Rare Past Drug Use History: None Reported - Past Family History Mother Family Medical History: No Reported History Medications and Allergies Home Medications Medication Instructions Recorded Confirmed Type Cholecalciferol [Vitamin D3] 1,000 units PO DAILY 11/23/13 04/20/16 History Lovastatin 80 mg PO HS 11/23/13 04/20/16 History Warfarin Sodium 2.5 mg PO DAILY 11/23/13 04/20/16 History clonazePAM [KlonoPIN] 0.5 mg PO HS 11/23/13 04/20/16 History Digoxin 250 mcg PO DAILY 04/14/16 04/20/16 History Fludrocortisone [Florinef] 0.1 mg PO DAILY 04/14/16 04/20/16 History Krill Oil 1,000 mg PO DAILY 04/14/16 04/20/16 History Aspirin EC [Ecotrin Low Dose] 81 mg PO DAILY 04/20/16 04/20/16 History Allergies Allergy/AdvReac Type Severity Reaction Status Date / Time Penicillins Allergy Rash/Hives Verified 04/20/16 08:26 Physical Exam Vitals: Vital Signs Temp Pulse Resp BP Pulse Ox 04/23/16 08:00 76 16 04/23/16 07:00 98.7 F 76 16 130/77 95 04/23/16 02:30 97.1 F L 97 16 144/90 94 L 04/22/16 19:30 97.9 F 85 16 122/66 96 04/22/16 16:15 77 106/72 04/22/16 16:00 72 115/75 04/22/16 15:45 75 96/64 04/22/16 15:30 87 110/75 04/22/16 15:15 79 101/58 04/22/16 15:00 82 94/62 04/22/16 14:45 85 95/59 04/22/16 14:30 98.4 F 83 17 93/62 95 Intake and Output 04/22/16 04/23/16 04/23/16 22:59 06:59 14:59 Intake Total 240 160 525 Output Total 500 400 Balance 240 -340 125 Intake: IV 160 Sodium Chloride 0.9% 1, 160 000 ml @ 20 mls/hr IV . Q24H [facility] Rx#:[id number] Oral 240 525 Output: Urine 500 Straight 500 Stool 400 Other: Voiding Method Urinal Urinal Incontinent Incontinent # Voids 1 1 Weight 72.575 kg Patient Weight 04/24/16 06:59 Weight 72.575 kg - Constitutional General appearance: cooperative, no acute distress - EENT Eyes: anicteric sclerae, normal appearance ENT: normal oropharynx - Neck Neck: no lymphadenopathy - Respiratory Respiratory: bilateral: diminished - Cardiovascular Heart sounds: normal: S1, S2 leg Peripheral Edema: bilateral: 1+, Pitting - Gastrointestinal General gastrointestinal: no absent bowel sounds, no decreased bowel sounds, no distended, no hepatomegaly, no hyperactive bowel sounds, normal bowel sounds, no organomegaly, no rigid, no scaphoid, soft, no splenomegaly, no tenderness, no umbilical hernia, no ventral hernia - Integumentary Integumentary: pale - Neurologic Neurologic: CNII-XII intact - Musculoskeletal Musculoskeletal: generalized weakness - Psychiatric Pt is pleasantly confused, he knows he is the hospital, but he cannot remember his address, he knows he is , when asked if he walked around he stated his drives, he does not, when asked if he walked with a cane or walker he never did answer the question, continued to repeat his drives and then he starting talking about tape Psychiatric: no A&O x's 3, no appropriate affect, no intact judgment & insight Results CBC & Chem 7: 04/23/16 07:42 04/23/16 07:42 Labs: Abnormal Lab Results - Last 24 Hours (Table) 04/22/16 04/23/16 04/23/16 Range/Units 20:07 07:42 07:42 WBC 13.7 H (3.8-10.6) k/uL Hgb 11.2 L (13.0-17.5) gm/dL Hct 35.7 L (39.0-53.0) % RDW 16.5 H (11.5-15.5) % Neutrophils # 12.0 H (1.3-7.7) k/uL PT 14.8 H (9.0-12.0) sec Potassium (3.5-5.1) mmol/L POC Glucose (mg/dL) 107 H (75-99) mg/dL 04/23/16 Range/Units 07:42 WBC (3.8-10.6) k/uL Hgb (13.0-17.5) gm/dL Hct (39.0-53.0) % RDW (11.5-15.5) % Neutrophils # (1.3-7.7) k/uL PT (9.0-12.0) sec Potassium 3.0 L* (3.5-5.1) mmol/L POC Glucose (mg/dL) (75-99) mg/dL Microbiology - Last 24 Hours (Table) 04/21/16 13:43 Gram Stain - Preliminary Pleural Fluid Body Fluid Culture - Preliminary Chest x-ray: report reviewed CT scan - chest: report reviewed CT Scan - head: report reviewed Assessment and Plan (1) Hemoptysis Status: Acute (2) Pleural effusion Status: Acute Plan: Pt is s/p thoracentesis, cytology pending. CT brain negative for metastatic disease currently. Pulmonary suspects malignancy, presentation and testing suggest malignancy as well. Pt did state that I could call his and talk to her about what is going on as he does not feel he is understanding what is going on.
--- NOTE | 2016-04-23 15:35 | P.PN ---
Subjective 70-year-old male patient, known history of COPD, known history of chronic smoking, coming in with few episodes of hemoptysis. The patient has lost approximately 40 pounds over the past 5 months. He is coughing out minimal amount of mucus on and off however his condition had changed when he started having some hemoptysis. There is a vague history of trauma and fall yet there is no major injury over his chest nor there is any area of bruising. He is a poor historian in general. A CAT scan of the chest was done in the emergency department and it showed a loculated right-sided pleural effusion and there is a cutoff sign in the distal right mainstem bronchus/bronchus intermedius area and New heterogeneous hyperdense masslike opacity in the posterior right lower lobe, measuring approximately 8.7 x 6.3 cm . This finding is suspicious for lung cancer and the possibility of pulmonary hemorrhage is less likely. Noted the patient's INR was at 3.8 at time of admission is currently down to 2.2. We' ll hold off his anticoagulation and given vitamin K. The plan is to proceed with a diagnostic thoracentesis of the right lung to be followed by bronchoscopy. The patient is seen again today in follow-up 04/21/2016 on the regular medical floor. He is awake and alert in no acute distress. He denies any worsening shortness of breath, cough or congestion. His INR is currently 1.6. He has been afebrile. No leukocytosis. He is maintaining good O2 saturations in the mid 90s on room air. A thoracentesis was done today at the bedside. Approximately 600 mL's of serosanguineous fluid was removed. The patient is being seen again in follow-up on 04/22/2016, and the patient is now having no new complaints. No hemoptysis. He underwent a thoracentesis yesterday with total of 600 mL of fluid was aspirated from the right lung. The fluid cytology still pending for now. Meanwhile, due to concern of a lung mass , I'm going to set up this patient for a bronchoscopy for airway inspection and there is a very high consented the patient may have an underlying malignancy. I discussed this with the patient's was very much agreeable to the procedure. The patient is still off anticoagulation. No chest pain. He is nothing by mouth for now awaiting his procedure. On 04/23/2016, the patient is being seen in follow-up. The patient is resting comfortably in bed. Macroscopy was done yesterday and showed a mass obstructing the proximal bronchus intermedius causing atelectasis of the right middle lobe and the right lower lobe and the patient has a large right-sided pleural effusion. In any rate, were still awaiting the final path although there is a high suspicion for non-small cell lung cancer of squamous cell type. Final path is still pending. Meanwhile I consulted hematology oncology. Patient is tolerating diet. He denies having any shortness of breath. His spending most of the time in bed and does limited amount of activity. Performance status is poor. Objective - Vital Signs Vital signs: Vital Signs Temp 98.7 F 04/23/16 07:00 Pulse 76 04/23/16 08:00 Resp 16 04/23/16 08:00 BP 130/77 04/23/16 07:00 Pulse Ox 95 04/23/16 07:00 Intake & Output 04/22/16 04/23/16 04/23/16 18:59 06:59 18:59 Intake Total 980 160 525 Output Total 450 500 400 Balance 530 -340 125 Weight 72.575 kg 72.575 kg Intake: IV 600 160 Sodium Chloride 0.9% 1, 160 000 ml @ 20 mls/hr IV . Q24H [facility] Rx#:[id number] Intake, IV Titration 140 Amount Sodium Chloride 0.9% 1, 140 000 ml @ 20 mls/hr IV . Q24H [facility] Rx#:[id number] Oral 240 525 Output: Urine 450 500 Straight 450 500 Stool 400 Other: Voiding Method Urinal Urinal Urinal Incontinent Incontinent # Voids 1 - Exam Head exam was generally normal. There was no scleral icterus or corneal arcus. Mucous membranes were moist.Neck was supple and without jugular venous distension, thyromegaly, or carotid bruits. Carotids were easily palpable bilaterally. There was no adenopathy. Lung sounds are diminished in the right lung base along with some dullness to percussion.Cardiac exam revealed the PMI to be normally situated and sized. The rhythm was regular and no extrasystoles were noted during several minutes of auscultation. The first and second heart sounds were normal and physiologic splitting of the second heart sound was noted. There were no murmurs, rubs, clicks, or gallops.Abdominal exam revealed normal bowel sounds. The abdomen was soft, non-tender, and without masses, organomegaly, or appreciable enlargement of the abdominal aorta.Examination of the extremities revealed easily palpable radial, femoral and pedal pulses. There was no cyanosis, clubbing or edema. - Labs CBC & Chem 7: 04/23/16 07:42 04/23/16 13:34 Labs: Abnormal Lab Results - Last 24 Hours (Table) 04/22/16 04/23/16 04/23/16 Range/Units 20:07 07:42 07:42 WBC 13.7 H (3.8-10.6) k/uL Hgb 11.2 L (13.0-17.5) gm/dL Hct 35.7 L (39.0-53.0) % RDW 16.5 H (11.5-15.5) % Neutrophils # 12.0 H (1.3-7.7) k/uL PT 14.8 H (9.0-12.0) sec Potassium (3.5-5.1) mmol/L POC Glucose (mg/dL) 107 H (75-99) mg/dL 04/23/16 04/23/16 Range/Units 07:42 13:34 WBC (3.8-10.6) k/uL Hgb (13.0-17.5) gm/dL Hct (39.0-53.0) % RDW (11.5-15.5) % Neutrophils # (1.3-7.7) k/uL PT (9.0-12.0) sec Potassium 3.0 L* 3.1 L (3.5-5.1) mmol/L POC Glucose (mg/dL) (75-99) mg/dL Microbiology - Last 24 Hours (Table) 04/21/16 13:43 Gram Stain - Preliminary Pleural Fluid Body Fluid Culture - Preliminary Assessment and Plan Plan: Impression 1 complex heterogeneous right lung mass with a cutoff sign of the distal right mainstem bronchus/bronchus intermedius and a loculated right-sided pleural effusion. The patient presented with hemoptysis. Rule out primary bronchogenic cancer causing obstruction of distal right mainstem bronchus/ bronchus intermedius. Rule out malignant pleural effusion. Less likely possibilities are traumatic hemorrhage within the pleural space. I am in favor of malignancies especially the patient has lost significant amount of weight and he has the risk factors. On 04/22/2016, the patient is being seen in follow-up. The patient already had a diagnostic thoracentesis of the right lung and we are still awaiting the fluid cytology. Meanwhile a bronchoscopy will be done to inspect his right lung with a significant concern of him having a mass in the right main bronchus/ bronchus intermedius area. The patient is nothing by mouth this morning. The patient will be having a procedure later on during the day. on 04/23/2016, the patient was identified to have a large mass obstructing the proximal bronchus intermedius resulting into atelectasis of the right middle lobe and right lower lobe with a right-sided pleural effusion. A very high suspicion for malignancy of a non-small cell type probably of a squamous cell type. Final path is still pending for now. 2 COPD 3 hemoptysis, currently inactive 4 weight-loss 5 REM behavioral disorder 6 restless leg syndrome 7 BPH 8 chronic atrial fibrillation 9 COPD 10 hypertension 11 pacemaker insertion 12 dementia Plan Awaiting the pleural fluid cytology. Awaiting the results of the bronchoscopic endobronchial biopsyawaiting oncology consultation. Prognosis obviously poor baseline above-mentioned comorbidities. Case was discussed with the patient's family and .
--- NOTE | 2016-04-23 17:03 | PN ---
DATE OF SERVICE: 04/23/2016 This 70-year-old gentleman who was admitted with hemoptysis and possible pulmonary hemorrhage also underwent bronchoscopy by Dr. Messina after thoracocentesis. Bronchoscopy showed endobronchial tumor obstructing the right bronchus intermedius and complete atelectasis of the right middle lobe and right lower lobe. Flexible bronchoscopy and endobronchial biopsy and endobronchial needle aspirate was done by Dr. Messina. Patient is closely monitored. Patient continues to be confused at this time. On exam, alert and oriented x1. Pulse 76, blood pressure 130/77, respiration 16, temperature 98.7, pulse ox 95% on room air. HEENT: Conjunctivae normal. Oral mucosa moist. NECK: No jugular venous distention. No carotid bruit. No lymph node enlargement. CARDIOVASCULAR SYSTEM: S1, S2 muffled. RESPIRATORY SYSTEM: Breath sounds diminished at the bases. A few scattered rhonchi. ABDOMEN: Soft, non-tender. NERVOUS SYSTEM: No focal deficit. LABS: WBC 13.7 and potassium is 3. ASSESSMENT: 1. Hemoptysis with possible pulmonary hemorrhage as well as possibly bronchogenic malignancy with endobronchial tumor obstructing the right bronchus intermedius with atelectasis of the right middle and right lower lobes, status post bronchoscopy and endobronchial biopsies and endobronchial needle aspirate. 2. Possible right lower lobe pneumonia, postobstructive, possibly Gram-negative. 3. Right pleural effusion, status post aspiration. 4. Change in mental status, metabolic encephalopathy, multifactorial. 5. Coumadin coagulopathy. 6. Gait dysfunction. 7. Increased white count. 8. Anemia, normocytic. 9. Coumadin monitoring. 10. Atrial fibrillation history. 11. Hypoalbuminemia with mild to moderate protein-calorie malnutrition. 12. Change in mental status, metabolic encephalopathy, acute on chronic. 13. History of dementia. 14. History of atrial fibrillation. 15. History of chronic obstructive pulmonary disease. 16. Hypertension, essential. 17. Hyperlipidemia. 18. History of prostate disorder. 19. History of pacemaker. 20. Continued ongoing nicotine dependence. 21. FULL CODE. RECOMMENDATIONS AND DISCUSSION: I recommend to continue with the current medications, continue with the monitoring, symptomatic treatment. Closely follow with Dr. Messina. Await biopsy report. I would also recommend evaluation by Dr. Garcia. Continue the rest of the medications. Prognosis guarded. Discussed with his at the bedside, who understands and agrees. Further recommendations to follow.
[2016-04-23 20:12] LABS: Glucose,Whole Blood 96 mg/dL (75-99)
[2016-04-23] MEDS: ATORVASTATIN 20 MG TAB PO SCH (20:36)
[2016-04-23] MEDS: clonazePAM 0.5 MG TAB PO SCH (20:36)
[2016-04-24 07:01] LABS: Glucose,Whole Blood 91 mg/dL (75-99)
[2016-04-24 07:13] LABS: INR 1.7 (<1.1); Prothrombin Time 16.2 sec (9.0-12.0)
[2016-04-24 07:33] LABS: Anion Gap 10 mmol/L; Blood Urea Nitrogen 11 mg/dL (9-20); Calcium 8.5 mg/dL (8.4-10.2); Carbon Dioxide 27 mmol/L (22-30); Chloride 106 mmol/L (98-107); Glucose 94 mg/dL (74-99); Magnesium 2.2 mg/dL (1.6-2.3); Non-African American GFR(MDRD) >60 (>60 ml/min/1.73 sqM); Potassium 3.5 mmol/L (3.5-5.1); Sodium 143 mmol/L (137-145)
[2016-04-24 07:41] LABS: Anisocytosis Slight; Basophils % (A) 0 %; CH 26.4; CHCM 31.7; Eosinophils # (A) 0.1 k/uL (0-0.7); Eosinophils % (A) 0 %; HCT 38.7 % (39.0-53.0); HDW 2.73; Hypochromasia Slight; Luc # (Auto) 0.12; Luc % (Auto) 1; Lymphocytes # (A) 0.7 k/uL (1.0-4.8); Lymphocytes % (A) 5 %; MCHC 30.9 g/dL (31.0-37.0); MCV 83.9 fL (80.0-100.0); Mean Platelet Volume 7.9; Monocytes # (A) 0.4 k/uL (0-1.0); Monocytes % (A) 3 %; Neutrophils # (A) 12.7 k/uL (1.3-7.7); Neutrophils % (A) 91 %; RBC 4.61 m/uL (4.30-5.90)
[2016-04-24] MEDS: TAMSULOSIN 0.4 MG CAP.ER.24H PO SCH ×2 (07:50→19:38)
[2016-04-24] MEDS: PANTOPRAZOLE 40 MG/10 ML VIAL IV SCH (07:50)
[2016-04-24] MEDS: FLUDROCORTISONE 0.1 MG TAB PO SCH (07:51)
[2016-04-24] MEDS: SODIUM CHLORIDE 0.9% 1,000 ML IV SCH (07:51)
[2016-04-24] MEDS: CHOLECALCIFEROL 1,000 UNIT TAB PO SCH (07:51)
[2016-04-24] MEDS: DIGOXIN 250 MCG TAB PO SCH (07:51)
[2016-04-24] MEDS: LACTATED RINGERS 1,000 ML IV SCH (12:53)
[2016-04-24] MEDS: LEVOFLOXACIN 500 MG TAB PO SCH (12:53)
--- NOTE | 2016-04-24 17:00 | P.PN ---
Subjective Principal diagnosis: Right lung pleural effusion 70-year-old male patient, known history of COPD, known history of chronic smoking, coming in with few episodes of hemoptysis. The patient has lost approximately 40 pounds over the past 5 months. He is coughing out minimal amount of mucus on and off however his condition had changed when he started having some hemoptysis. There is a vague history of trauma and fall yet there is no major injury over his chest nor there is any area of bruising. He is a poor historian in general. A CAT scan of the chest was done in the emergency department and it showed a loculated right-sided pleural effusion and there is a cutoff sign in the distal right mainstem bronchus/bronchus intermedius area and New heterogeneous hyperdense masslike opacity in the posterior right lower lobe, measuring approximately 8.7 x 6.3 cm . This finding is suspicious for lung cancer and the possibility of pulmonary hemorrhage is less likely. Noted the patient's INR was at 3.8 at time of admission is currently down to 2.2. We' ll hold off his anticoagulation and given vitamin K. The plan is to proceed with a diagnostic thoracentesis of the right lung to be followed by bronchoscopy. The patient is seen again today in follow-up 04/21/2016 on the regular medical floor. He is awake and alert in no acute distress. He denies any worsening shortness of breath, cough or congestion. His INR is currently 1.6. He has been afebrile. No leukocytosis. He is maintaining good O2 saturations in the mid 90s on room air. A thoracentesis was done today at the bedside. Approximately 600 mL's of serosanguineous fluid was removed. The patient is being seen again in follow-up on 04/22/2016, and the patient is now having no new complaints. No hemoptysis. He underwent a thoracentesis yesterday with total of 600 mL of fluid was aspirated from the right lung. The fluid cytology still pending for now. Meanwhile, due to concern of a lung mass , I'm going to set up this patient for a bronchoscopy for airway inspection and there is a very high consented the patient may have an underlying malignancy. I discussed this with the patient's was very much agreeable to the procedure. The patient is still off anticoagulation. No chest pain. He is nothing by mouth for now awaiting his procedure. On 04/23/2016, the patient is being seen in follow-up. The patient is resting comfortably in bed. Macroscopy was done yesterday and showed a mass obstructing the proximal bronchus intermedius causing atelectasis of the right middle lobe and the right lower lobe and the patient has a large right-sided pleural effusion. In any rate, were still awaiting the final path although there is a high suspicion for non-small cell lung cancer of squamous cell type. Final path is still pending. Meanwhile I consulted hematology oncology. Patient is tolerating diet. He denies having any shortness of breath. His spending most of the time in bed and does limited amount of activity. Performance status is poor. The patient was seen again today 04/24/2016 in follow-up. His pulmonary status is currently stable. He is maintaining good O2 saturations in the upper 90s on room air. His been afebrile. The pleural fluid was negative for malignant cells. Pathology is still pending in regards to the obstructing mass in the proximal bronchus intermedius post biopsy. Objective - Vital Signs Vital signs: Vital Signs Temp 98.8 F 04/24/16 14:18 Pulse 68 04/24/16 16:00 Resp 17 04/24/16 16:00 BP 122/66 04/24/16 14:18 Pulse Ox 97 04/24/16 14:18 Intake & Output 04/23/16 04/24/16 04/24/16 18:59 06:59 18:59 Intake Total 825 230 180 Output Total 1800 1300 Balance -975 230 -1120 Weight 72.575 kg Intake: IV 200 180 Sodium Chloride 0.9% 1, 200 180 000 ml @ 20 mls/hr IV . Q24H [facility] Rx#:[id number] Intake, IV Titration 100 230 Amount Magnesium Sulfate-D5w Pmx 100 1 gm In Dextrose/Water 1 100ml.bag @ 100 mls/hr IVPB Q1H [facility] Rx#: [id number] Sodium Chloride 0.9% 1, 230 000 ml @ 20 mls/hr IV . Q24H [facility] Rx#:[id number] Oral 525 Output: Urine 1000 500 Straight 500 500 Stool 800 800 Other: Voiding Method Urinal Urinal Incontinent Incontinent # Voids 1 - Exam GENERAL EXAM: Cachectic. Alert, comfortable in no apparent distress. HEAD: Normocephalic. EYES: Normal reaction of pupils, equal size. NOSE: Clear with pink turbinates. THROAT: No erythema or exudates. NECK: No masses, no JVD. CHEST: No chest wall deformity. LUNGS: Diminished in the right lung base. CVS: S1 and S2 normal with no audible murmurs, regular rhythm. ABDOMEN: No hepatosplenomegaly, normal bowel sounds, no guarding or rigidity. SPINE: No scoliosis or deformity SKIN: No rashes CENTRAL NERVOUS SYSTEM: No focal deficits, tone is normal in all 4 extremities. Extremities: There is no peripheral edema. No clubbing, no cyanosis. Peripheral pulses are intact. - Labs CBC & Chem 7: 04/24/16 06:43 04/24/16 06:43 Labs: Abnormal Lab Results - Last 24 Hours (Table) 04/23/16 04/24/16 04/24/16 Range/Units 18:45 06:43 06:43 WBC 14.0 H (3.8-10.6) k/uL Hgb 12.0 L (13.0-17.5) gm/dL Hct 38.7 L (39.0-53.0) % MCHC 30.9 L (31.0-37.0) g/dL RDW 17.0 H (11.5-15.5) % Neutrophils # 12.7 H (1.3-7.7) k/uL Lymphocytes # 0.7 L (1.0-4.8) k/uL PT 16.2 H (9.0-12.0) sec Potassium 3.3 L (3.5-5.1) mmol/L Microbiology - Last 24 Hours (Table) 04/21/16 13:43 Gram Stain - Preliminary Pleural Fluid Body Fluid Culture - Preliminary Assessment and Plan Plan: Impression 1 complex heterogeneous right lung mass with a cutoff sign of the distal right mainstem bronchus/bronchus intermedius and a loculated right-sided pleural effusion. The patient presented with hemoptysis. Rule out primary bronchogenic cancer causing obstruction of distal right mainstem bronchus/ bronchus intermedius. Rule out malignant pleural effusion. Less likely possibilities are traumatic hemorrhage within the pleural space. I am in favor of malignancies especially the patient has lost significant amount of weight and he has the risk factors. On 04/22/2016, the patient is being seen in follow-up. The patient already had a diagnostic thoracentesis of the right lung and we are still awaiting the fluid cytology. Meanwhile a bronchoscopy will be done to inspect his right lung with a significant concern of him having a mass in the right main bronchus/ bronchus intermedius area. The patient is nothing by mouth this morning. The patient will be having a procedure later on during the day. on 04/23/2016, the patient was identified to have a large mass obstructing the proximal bronchus intermedius resulting into atelectasis of the right middle lobe and right lower lobe with a right-sided pleural effusion. A very high suspicion for malignancy of a non-small cell type probably of a squamous cell type. Final path is still pending for now. On 04/24/2016 the pleural effusion was negative for malignancy. Biopsies are pending. Suspicion remains high for malignancy. Most likely non-small cell of a squamous cell type. 2 COPD 3 hemoptysis 4 weight-loss 5 REM behavioral disorder 6 restless leg syndrome 7 BPH 8 chronic atrial fibrillation 9 COPD 10 hypertension 11 pacemaker insertion 12 dementia Plan: The patient was seen and evaluated by Dr. Messina. We are waiting final pathology but again the suspicion is high for malignancy of a non-small cell type probably of squamous cell. Patient is not a candidate for surgery. Oncology has been consulted however his overall prognosis is quite poor based on his poor functional performance. We'll see the patient on as-needed basis while here in hospital. He will follow-up in our office in 1-2 weeks' time. His who is at the bedside is agreeable to the plan.
--- NOTE | 2016-04-24 19:03 | PN ---
DATE OF SERVICE: 04/24/2016 This 70-year-old gentleman admitted with hemoptysis, also had collapse of the right lower lobe. Dr. Messina saw the patient and bronchoscopy was done with significant of possible malignancy. The final biopsy pending at this time. The cytology from the pleural fluid showed acute inflammatory cells and mesothelial cells and macrophages. Malignant cells were not identified. Dr. Garcia is following the patient closely. The patient is mildly confused. PAST MEDICAL HISTORY: Reviewed. Review of systems could not be obtained because the patient is confused. Current medications are reviewed and include: 1. Lipitor 10 mg q.h.s. 2. Vitamin D3, 1000 units. 3. Klonopin 0.5 mg. 4. Lanoxin 250 mcg. 5. Florinef 0.4 daily. 7. Levaquin. 8. Ativan. 9. Narcan. 10. Protonix. 11. Flomax. PHYSICAL EXAM: Patient is confused. Pulse is 89, blood pressure 108/96, respirations 17, temperature 96.9, pulse ox 94% on room air. Blood pressure repeated was 132/66. HEENT: Conjunctivae normal. NECK: No jugular venous distension. CARDIOVASCULAR: S1 and S2 muffled. RESPIRATORY: Breath sounds diminished in the bases. Bilateral scattered rhonchi and crackles. ABDOMEN: Soft, nontender. LEGS: No edema. No swelling. NERVOUS SYSTEM: Diffusely weak. LABS: WBC 14, hemoglobin is 12. ASSESSMENT: 1. Hemoptysis, possibly secondary to bronchogenic malignancy with endobronchial tumor obstructing the right bronchus intermedius with atelectasis of the right middle lobe and right lower lobe, status post bronchoscopy, endobronchial biopsies and endobronchial needle aspirate. 2. Possible right lower lobe pneumonia, possibly postobstructive, possibly gram-negative with possible sepsis. 3. Right pleural effusion, probably parapneumonic. No evidence of malignancy currently. 4. Change in mental status, metabolic encephalopathy, multifactorial. 5. Chronic lymphadenopathy. 6. Gait dysfunction. 7. Increased WBC. 8. Anemia, normocytic. 9. Coumadin monitoring. 10. Atrial fibrillation history. 11. Hypoalbuminemia with mild to moderate protein-calorie malnutrition. 12. Change in mental status, metabolic encephalopathy, acute on chronic. 13. History of dementia. 14. History of atrial fibrillation. 15. History of chronic obstructive pulmonary disease. 16. Hypertension, essential. 17. Hyperlipidemia. 18. History of prostate disorder. 19. History of pacemaker. 20. Continued ongoing nicotine dependence. 21. NO CODE, NO CARDIOPULMONARY RESUSCITATION, NO VENTILATOR. RECOMMENDATIONS AND DISCUSSION: In this 70-year-old gentleman who presented with multiple complex medical issues, we will monitor the patient closely, continue the current medications, continue symptomatic treatment, will institute the bronchodilators, continue the empiric antibiotics, continue with the rest of the medications. Otherwise, closely follow with Dr. Messina. Discussed at length with Dr. Garcia. Dr. Garcia evaluated the patient and basically will wait for the biopsy reports and will assess whether the patient is a candidate for any palliative treatment at this time. The curative intention is doubtful at this point. ONCE AGAIN, THE PATIENT IS NO CODE, NO CPR. See orders for further details. The prognosis is guarded. Further recommendations to follow. MTDD
[2016-04-24] MEDS: ATORVASTATIN 20 MG TAB PO SCH (19:38)
[2016-04-24] MEDS: clonazePAM 0.5 MG TAB PO SCH (19:38)
[2016-04-24] MEDS: IPRATROPIUM-ALBUTEROL 3 ML NEB INHALATION SCH (20:16)
--- NOTE | 2016-04-24 23:51 | P.PN ---
Subjective Principal diagnosis: Lung mass, pleural effusion The patient's cough was improved. He has not had further hemoptysis. Breathing overall is improved. Objective - Vital Signs Vital signs: Vital Signs Temp 97 F L 04/24/16 20:00 Pulse 70 04/24/16 20:19 Resp 16 04/24/16 20:00 BP 132/74 04/24/16 20:00 Pulse Ox 94 L 04/24/16 20:00 Intake & Output 04/24/16 04/24/16 04/25/16 06:59 18:59 06:59 Intake Total 230 420 Output Total 1300 Balance 230 -880 Intake: IV 180 Sodium Chloride 0.9% 1, 180 000 ml @ 20 mls/hr IV . Q24H [facility]IC[facility] Rx#:[id number] Intake, IV Titration 230 Amount Sodium Chloride 0.9% 1, 230 000 ml @ 20 mls/hr IV . Q24H NIC[facility] Rx#:[id number] Oral 240 Output: Urine 500 Straight 500 Stool 800 Other: Voiding Method Urinal Urinal Incontinent Incontinent # Voids 1 - Constitutional General appearance: Present: no acute distress - EENT Eyes: Present: PERRLA ENT: Present: normal oropharynx - Neck Thyroid: bilateral: normal size - Respiratory Respiratory: right: diminished - Cardiovascular Rhythm: regular Heart sounds: normal: S1, S2 - Gastrointestinal General gastrointestinal: Present: normal bowel sounds, soft - Integumentary Integumentary: Present: normal - Neurologic Neurologic: Present: CNII-XII intact - Musculoskeletal Musculoskeletal: Present: generalized weakness, strength equal bilaterally - Psychiatric Psychiatric: Present: A&O x's 3 - Labs CBC & Chem 7: 04/24/16 06:43 04/24/16 06:43 Labs: Abnormal Lab Results - Last 24 Hours (Table) 04/24/16 04/24/16 Range/Units 06:43 06:43 WBC 14.0 H (3.8-10.6) k/uL Hgb 12.0 L (13.0-17.5) gm/dL Hct 38.7 L (39.0-53.0) % MCHC 30.9 L (31.0-37.0) g/dL RDW 17.0 H (11.5-15.5) % Neutrophils # 12.7 H (1.3-7.7) k/uL Lymphocytes # 0.7 L (1.0-4.8) k/uL PT 16.2 H (9.0-12.0) sec Microbiology - Last 24 Hours (Table) 04/21/16 13:43 Gram Stain - Preliminary Pleural Fluid Body Fluid Culture - Preliminary Assessment and Plan (1) Lung mass Narrative/Plan: The patient is status post bronchoscopy. The bronchoscopy findings were highly sensitive malignancy, with presence of a mass causing obstruction . Biopsy report was not available at the time of evaluation of the patient. Await biopsy. If the pathology indicates a non-small cell lung cancer, the patient would be recommended a PET scan. On that, if there is no evidence of disease elsewhere, he may actually be a surgical candidate. Case was discussed with the admitting service. Status: Acute (2) Pleural effusion Narrative/Plan: Cytology on the pleural fluid was negative for evidence of malignancy. This is likely postobstructive or parapneumonic. Status: Acute
[2016-04-25] MEDS: SODIUM CHLORIDE 0.9% 1,000 ML IV SCH (01:19)
[2016-04-25 07:01] LABS: Anisocytosis Slight; Basophils % (A) 0 %; CH 26.3; CHCM 31.5; Eosinophils # (A) 0.1 k/uL (0-0.7); Eosinophils % (A) 0 %; HCT 38.9 % (39.0-53.0); HDW 2.77; HGB 12.3 gm/dL (13.0-17.5); Hypochromasia Slight; Luc # (Auto) 0.09; Luc % (Auto) 1; Lymphocytes # (A) 0.6 k/uL (1.0-4.8); Lymphocytes % (A) 4 %; MCH 26.5 pg (25.0-35.0); MCHC 31.5 g/dL (31.0-37.0); MCV 84.1 fL (80.0-100.0); Mean Platelet Volume 7.9; Monocytes # (A) 0.5 k/uL (0-1.0); Monocytes % (A) 4 %; Neutrophils # (A) 13.4 k/uL (1.3-7.7); Neutrophils % (A) 91 %; RBC 4.63 m/uL (4.30-5.90); WBC 14.7 k/uL (3.8-10.6); WBC (Perox) 15.85
[2016-04-25 07:11] LABS: INR 1.8 (<1.1)
[2016-04-25 07:21] LABS: Anion Gap 10 mmol/L; Blood Urea Nitrogen 12 mg/dL (9-20); Calcium 8.6 mg/dL (8.4-10.2); Carbon Dioxide 27 mmol/L (22-30); Chloride 104 mmol/L (98-107); Glucose 93 mg/dL (74-99); Non-African American GFR(MDRD) >60 (>60 ml/min/1.73 sqM); Potassium 3.6 mmol/L (3.5-5.1); Sodium 141 mmol/L (137-145)
[2016-04-25] MEDS: IPRATROPIUM-ALBUTEROL 3 ML NEB INHALATION SCH ×3 (07:24→19:16)
[2016-04-25] MEDS: CHOLECALCIFEROL 1,000 UNIT TAB PO SCH ×2 (08:59→12:32)
[2016-04-25] MEDS: FLUDROCORTISONE 0.1 MG TAB PO SCH ×2 (08:59→12:32)
[2016-04-25] MEDS: TAMSULOSIN 0.4 MG CAP.ER.24H PO SCH ×4 (08:59→19:11)
[2016-04-25] MEDS: PANTOPRAZOLE 40 MG TABLET PO SCH ×3 (09:00→12:32)
[2016-04-25] MEDS: DIGOXIN 250 MCG TAB PO SCH ×2 (09:00→12:32)
[2016-04-25] MEDS: LEVOFLOXACIN 500 MG TAB PO SCH (12:33)
[2016-04-25] MEDS: LACTATED RINGERS 1,000 ML IV SCH (13:16)
[2016-04-25] MEDS: clonazePAM 0.5 MG TAB PO SCH (19:11)
[2016-04-25] MEDS: ATORVASTATIN 20 MG TAB PO SCH (19:11)
[2016-04-26] MEDS: SODIUM CHLORIDE 0.9% 1,000 ML IV SCH (02:10)
[2016-04-26] MEDS: IPRATROPIUM-ALBUTEROL 3 ML NEB INHALATION SCH ×3 (07:58→18:51)
[2016-04-26] MEDS: PANTOPRAZOLE 40 MG TABLET PO SCH (08:26)
[2016-04-26] MEDS: FLUDROCORTISONE 0.1 MG TAB PO SCH (08:26)
[2016-04-26] MEDS: DIGOXIN 250 MCG TAB PO SCH (08:26)
[2016-04-26] MEDS: CHOLECALCIFEROL 1,000 UNIT TAB PO SCH (08:26)
[2016-04-26] MEDS: TAMSULOSIN 0.4 MG CAP.ER.24H PO SCH ×2 (08:26→20:27)
--- NOTE | 2016-04-26 10:32 | PN ---
DATE OF SERVICE: 04/25/2016 This 70-year-old gentleman who was admitted with hemoptysis, also had collapse of the right lower lobe. The patient had a bronchoscopy. The final biopsy is pending at this time, most likely it is a malignant. The patient is being monitored closely. The patient is confused. Dr. Garcia as well as are following the patient closely. On exam, pulse 89, blood pressure 90/64, respirations 16, temperature 97.6, pulse ox 94% on room air. HEENT: Conjunctivae normal. NECK: No JVD. CARDIOVASCULAR: S1, S2 muffled. LUNGS: Breath sounds are diminished in the bases. Few scattered rhonchi and crackles. ABDOMEN: Soft, nontender. EXTREMITIES: Legs no edema. NERVOUS SYSTEM: No focal deficits. LABS: WBC 14.6, hemoglobin 12.3. ASSESSMENT: 1. Hemoptysis, possibly secondary to malignancy with endobronchial tumor obstructing the right bronchus intermedius with atelectasis of the right middle lobe and right lower lobe, status post bronchoscopy and endobronchial biopsies and bronchial needle aspirate. 2. Possible right lower lobe pneumonia, possibly post-obstructive, possibly gram-negative with possible sepsis. 3. Right pleural effusion, possible parapneumonic. No evidence of malignancy currently in the fluid. 4. Change in mental status, metabolic encephalopathy, multifactorial. 5. Coumadin coagulopathy. 6. Gait dysfunction. 7. Increased WBC. 8. Anemia, normocytic. 9. Coumadin monitoring. 10. Atrial fibrillation history. 11. Hypoalbuminemia with mild to moderate protein calorie malnutrition. 12. Change in mental status, metabolic encephalopathy, acute on chronic. 13. History of dementia. 14. History of atrial fibrillation. 15. History of COPD. 16. Hypertension. 17. Hyperlipidemia. 18. History of prostate disorder. 19. History of pacemaker. 20. Continue ongoing nicotine dependence. 21. NO CODE, NO CPR, NO VENTILATOR. RECOMMENDATIONS AND DISCUSSION: Recommend to continue current medications and continue symptomatic treatment. Otherwise at this time I would recommend continuing with antibiotics, bronchodilators, and the rest of the medications. Otherwise, continue to monitor. Guarded prognosis. Further recommendations to follow. MTDD
[2016-04-26] MEDS: LEVOFLOXACIN 500 MG TAB PO SCH (12:52)
--- NOTE | 2016-04-26 13:37 | P.PN ---
Subjective 70-year-old male patient, known history of COPD, known history of chronic smoking, coming in with few episodes of hemoptysis. The patient has lost approximately 40 pounds over the past 5 months. He is coughing out minimal amount of mucus on and off however his condition had changed when he started having some hemoptysis. There is a vague history of trauma and fall yet there is no major injury over his chest nor there is any area of bruising. He is a poor historian in general. A CAT scan of the chest was done in the emergency department and it showed a loculated right-sided pleural effusion and there is a cutoff sign in the distal right mainstem bronchus/bronchus intermedius area and New heterogeneous hyperdense masslike opacity in the posterior right lower lobe, measuring approximately 8.7 x 6.3 cm . This finding is suspicious for lung cancer and the possibility of pulmonary hemorrhage is less likely. Noted the patient's INR was at 3.8 at time of admission is currently down to 2.2. We' ll hold off his anticoagulation and given vitamin K. The plan is to proceed with a diagnostic thoracentesis of the right lung to be followed by bronchoscopy. The patient is seen again today in follow-up 04/21/2016 on the regular medical floor. He is awake and alert in no acute distress. He denies any worsening shortness of breath, cough or congestion. His INR is currently 1.6. He has been afebrile. No leukocytosis. He is maintaining good O2 saturations in the mid 90s on room air. A thoracentesis was done today at the bedside. Approximately 600 mL's of serosanguineous fluid was removed. The patient is being seen again in follow-up on 04/22/2016, and the patient is now having no new complaints. No hemoptysis. He underwent a thoracentesis yesterday with total of 600 mL of fluid was aspirated from the right lung. The fluid cytology still pending for now. Meanwhile, due to concern of a lung mass , I'm going to set up this patient for a bronchoscopy for airway inspection and there is a very high consented the patient may have an underlying malignancy. I discussed this with the patient's was very much agreeable to the procedure. The patient is still off anticoagulation. No chest pain. He is nothing by mouth for now awaiting his procedure. On 04/23/2016, the patient is being seen in follow-up. The patient is resting comfortably in bed. Macroscopy was done yesterday and showed a mass obstructing the proximal bronchus intermedius causing atelectasis of the right middle lobe and the right lower lobe and the patient has a large right-sided pleural effusion. In any rate, were still awaiting the final path although there is a high suspicion for non-small cell lung cancer of squamous cell type. Final path is still pending. Meanwhile I consulted hematology oncology. Patient is tolerating diet. He denies having any shortness of breath. His spending most of the time in bed and does limited amount of activity. Performance status is poor. The patient was seen again today 04/24/2016 in follow-up. His pulmonary status is currently stable. He is maintaining good O2 saturations in the upper 90s on room air. His been afebrile. The pleural fluid was negative for malignant cells. Pathology is still pending in regards to the obstructing mass in the proximal bronchus intermedius post biopsy. On 04/26/2016 the patient remains stable. He was diagnosed having Squamous cell carcinoma as the patient was found to have a mass obstructing the proximal bronchus intermedius/distal right main bronchus area. He also has completed atelectasis of the right middle lobe and the right lower lobe with a pleural effusion that was drained and the fluid cytology was negative for malignancy. Performance status extremely poor.. No worsening shortness of breath. No other new complaints otherwise for now. Objective - Vital Signs Vital signs: Vital Signs Temp 98.8 F 04/26/16 08:24 Pulse 94 04/26/16 08:24 Resp 16 04/26/16 08:24 BP 144/73 04/26/16 08:24 Pulse Ox 93 L 04/26/16 08:24 Intake & Output 04/25/16 04/26/16 04/26/16 18:59 06:59 18:59 Intake Total 515 690 240 Output Total 350 400 45 Balance 165 290 195 Intake: Oral 515 690 240 Output: Urine 350 400 45 Straight 300 400 Other: Voiding Method Urinal Indwelling Catheter Incontinent # Voids 1 - Exam Head exam was generally normal. There was no scleral icterus or corneal arcus. Mucous membranes were moist.Neck was supple and without jugular venous distension, thyromegaly, or carotid bruits. Carotids were easily palpable bilaterally. There was no adenopathy. Lung sounds are diminished in the right lung base along with some dullness to percussion.Cardiac exam revealed the PMI to be normally situated and sized. The rhythm was regular and no extrasystoles were noted during several minutes of auscultation. The first and second heart sounds were normal and physiologic splitting of the second heart sound was noted. There were no murmurs, rubs, clicks, or gallops.Abdominal exam revealed normal bowel sounds. The abdomen was soft, non-tender, and without masses, organomegaly, or appreciable enlargement of the abdominal aorta.Examination of the extremities revealed easily palpable radial, femoral and pedal pulses. There was no cyanosis, clubbing or edema. - Labs CBC & Chem 7: 04/25/16 06:35 04/25/16 06:35 Labs: Microbiology - Last 24 Hours (Table) 04/21/16 13:43 Gram Stain - Final Pleural Fluid Body Fluid Culture - Final Assessment and Plan Plan: Impression 1 squamous cell carcinoma of the lung with a large mass obstructing the proximal bronchus intermedius causing complete atelectasis of the right middle lobe and right lower lobe. The patient also has developed a pleural effusion that was aspirated and the pleural fluid cytology is negative. The CAT scan of the chest showed a complex heterogeneous right lung mass with a cutoff sign of the distal right mainstem bronchus/bronchus intermedius and a loculated right- sided pleural effusion. The patient presented with hemoptysis. 2 COPD 3 hemoptysis, currently inactive 4 weight-loss 5 REM behavioral disorder 6 restless leg syndrome 7 BPH 8 chronic atrial fibrillation 9 COPD 10 hypertension 11 pacemaker insertion 12 dementia Plan Oncology is on the case. Performance status extremely poor. Not candidate for any surgical lung resection. Unsure if he is a candidate for any systemic chemotherapy or targeted therapy. Awaiting further input from oncology.
[2016-04-26 20:12] LABS: Glucose,Whole Blood 162 mg/dL (75-99)
[2016-04-26] MEDS: clonazePAM 0.5 MG TAB PO SCH (20:27)
[2016-04-26] MEDS: ATORVASTATIN 20 MG TAB PO SCH (20:27)
[2016-04-26] MEDS: LACTATED RINGERS 1,000 ML IV SCH (20:29)
[2016-04-27] MEDS: SODIUM CHLORIDE 0.9% 1,000 ML IV SCH (01:04)
[2016-04-27 02:00] VITALS: RESP 16
[2016-04-27] MEDS: IPRATROPIUM-ALBUTEROL 3 ML NEB INHALATION SCH ×2 (08:02→14:28)
--- NOTE | 2016-04-27 09:55 | PN ---
DATE OF SERVICE: 04/26/2016 This 70-year-old gentleman who was admitted with hemoptysis, had possible bronchogenic malignancy. The patient also has pneumonia, pleural effusion, multiple other medical problems, has dementia also. The patient also has some generalized weakness and tiredness. ECF rehab is recommended at this time. Dr. Messina and Dr. Garcia are following the patient closely. The final biopsy shows squamous cell carcinoma, right brain stem biopsy. On exam, pulse is 75, blood pressure 130/72, respirations 16, temperature 96.9, pulse ox 96% on room air. HEENT: Conjunctivae normal. Oral mucosa moist. NECK: No JVD. No lymph node enlargement. CARDIOVASCULAR: S1 and S2 muffled. LUNGS: Breath sounds are diminished at the bases. Few scattered rhonchi and crackles. ABDOMEN: Soft, nontender. EXTREMITIES: Legs no swelling. NERVOUS SYSTEM: No focal deficits. LABS: WBC 14.7, hemoglobin 12.8, INR 1.8. ASSESSMENT: 1. Hemoptysis, secondary to squamous cell carcinoma on the right side with endobronchial tumor obstructing the right bronchus intermedius and atelectasis of the right mid and lower lobes, status post bronchoscopy and endobronchial biopsies and bronchial needle aspiration. 2. Possible right lower lobe pneumonia, possibly postobstructive, possibly gram-negative with sepsis, present on admission. 3. Right pleural effusion, possibly, parapneumonia, no evidence of malignancy currently in the fluid. 4. Change in mental status, metabolic encephalopathy, multifactorial. 5. Coumadin coagulopathy, present on admission. 6. Gait dysfunction. 7. Increased WBC. 8. Anemia, normocytic. 9. Coumadin monitoring. 10. Atrial fibrillation history. 11. Hypoalbuminemia with mild to moderate protein calorie malnutrition. 12. Change in mental status, metabolic encephalopathy, acute on chronic. 13. History of dementia. 14. History of atrial fibrillation. 15. History of chronic obstructive pulmonary disease. 16. Hypertension. 17. Hyperlipidemia. 18. History of prostate disorder. 19. History of pacemaker. 20. Continued ongoing nicotine dependence. 21. NO CODE, NO CPR, NO VENT. RECOMMENDATIONS: Recommended to continue current medications. Continue to monitor, symptomatic treatment. Otherwise at this time recommend continue with antibiotics. Continue with bronchodilators and the rest of the medications. PT, OT evaluation. Possible ECF rehab. Also discussed with at the bedside yesterday, who understands. Further recommendations to follow. Prognosis guarded.
[2016-04-27] MEDS: CHOLECALCIFEROL 1,000 UNIT TAB PO SCH ×2 (10:31→11:40)
[2016-04-27] MEDS: DIGOXIN 250 MCG TAB PO SCH ×2 (10:32→11:40)
[2016-04-27] MEDS: TAMSULOSIN 0.4 MG CAP.ER.24H PO SCH ×2 (10:32→11:40)
[2016-04-27] MEDS: FLUDROCORTISONE 0.1 MG TAB PO SCH ×2 (10:32→11:38)
[2016-04-27] MEDS: PANTOPRAZOLE 40 MG TABLET PO SCH ×2 (10:32→11:40)
[2016-04-27 10:53] VITALS: BP 118/79; PULSE 73; TEMP 98.8
[2016-04-27] MEDS: LEVOFLOXACIN 500 MG TAB PO SCH (11:38)
[2016-04-27] MEDS: LACTATED RINGERS 1,000 ML IV SCH (11:40)
[2016-04-27 11:47] LABS: Appearance,Urine Cloudy (Clear); Bacteria,Urine Rare /hpf; Bilirubin,Urine Negative (Negative); Glucose,Urine (UA) Negative (Negative); Ketones,Urine Negative (Negative); Leukocyte Esterase,Urine Small (Negative); Mucus,Urine Occasional /hpf; Nitrite,Urine Negative (Negative); PH, Urine 5.5 (5.0-8.0); Particle Count 7778; Protein,Urine 1+ (Negative); RBC,Urine 18 /hpf (0-5); Specific Gravity,Urine 1.016 (1.001-1.035); Squamous Epithelial Cell,Urine 2 /hpf (0-4); UA Billing (MACRO vs. MICRO) MICRO; WBC,Urine 12 /hpf (0-5)
--- NOTE | 2016-04-27 12:43 | DS ---
DATE OF ADMISSION: 04/19/2016 DATE OF DISCHARGE: FINAL DIAGNOSES: 1. Hemoptysis secondary to squamous cell carcinoma on the right side with endobronchial tumor obstructing the right bronchus intermedius and atelectasis of the right mid and lower lobe, status post bronchoscopy and endobronchial biopsies and bronchial needle aspiration. 2. Possible right lower lobe pneumonia, possible postobstructive, possibly gram-negative sepsis, present on admission. 3. Right pleural effusion, possible parapneumonic, no evidence of malignancy currently in the fluid. 4. Change in mental status, metabolic encephalopathy, multifactorial, acute on chronic. 5. Coumadin coagulopathy present on admission, improved. 6. Gait dysfunction. 7. Increased WBC. 8. Normocytic, anemia of chronic disease. 9. Coumadin monitoring. 10. Chronic atrial fibrillation paroxysmal. 11. Hypoalbuminemia with mild to moderate protein calorie malnutrition. 12. History of dementia. 13. History of chronic obstructive pulmonary disease. 14. Hypertension. 15. Hyperlipidemia. 16. History of prostate disorder. 17. History of pacemaker. 18. Continued ongoing nicotine dependence. 19. NO CODE, NO CARDIOPULMONARY RESUSCITATION, NO VENTILATOR. DISCHARGE DISPOSITION: Patient will be transferred to [facility] in stable condition. Total time taken is 40 minutes. HISTORY OF PRESENT ILLNESS: This is a 70-year-old gentleman who was admitted with hemoptysis, also had other multiple medical problems, including postoperative pneumonia, possible parapneumonic effusion, and also bronchogenic squamous cell carcinoma. The patient underwent pleural tap by Dr. Messina that showed possibly parapneumonic, no evidence of malignancy, but; however, the bronchoscopy confirmed extensive malignancy as mentioned earlier. At this time, the patient is extremely weak and slated to go to rehab and after the rehab to be followed up with Dr. Garcia who evaluated the patient for PET scan and further evaluation regarding chemotherapy, radiation or further treatment options. Currently on exam, vitals are stable. Patient is mildly confused. CARDIOVASCULAR SYSTEM: S1, S2, muffled. ABDOMEN: Soft. RESPIRATION: A few scattered rhonchi, no crackles. The patient will be discharged in a stable condition with guarded prognosis. Hemoglobin is 12.3. DISCHARGE ADVICE: 1. Diet is cardiac. 2. Activity limited until followup. 3. Follow up with Dr. Garcia as advised. 4. Follow up with Dr. Archuleta in 2 weeks after discharge from ECF. 5. Otherwise, follow up with Dr. Sumner in the ECF and CBC, BMP in 2 to 3 days. The medications are: 1. Vitamin D3 one thousand units daily. 2. Digoxin 250 mcg p.o. daily. 3. Florinef 0.1 daily. 4. Albuterol Atrovent updrafts q.i.d. and p.r.n. 5. Ativan 0.5 mg q.8 p.r.n. 6. Levaquin 500 mg p.o. daily for 5 days. 7. Lovastatin 80 mg q.h.s. 8. Protonix 40 mg with breakfast. 9. Flomax 0.4 p.o. b.i.d. 10. Klonopin 0.5 mg p.o. q.h.s. 11. Multivitamins 1 p.o. daily. 12. Thiamine 100 mg daily. 13. Folic acid 1 mg p.o. daily. Follow up with Dr. Hernandez and Dr. Messina as recommended. Once again, the patient will be discharged in a stable condition with guarded prognosis.
--- NOTE | 2016-04-27 13:13 | P.PN ---
Subjective Principal diagnosis: Squamous cell carcinoma of the lung and the right sided pleural effusion. 70-year-old male patient, known history of COPD, known history of chronic smoking, coming in with few episodes of hemoptysis. The patient has lost approximately 40 pounds over the past 5 months. He is coughing out minimal amount of mucus on and off however his condition had changed when he started having some hemoptysis. There is a vague history of trauma and fall yet there is no major injury over his chest nor there is any area of bruising. He is a poor historian in general. A CAT scan of the chest was done in the emergency department and it showed a loculated right-sided pleural effusion and there is a cutoff sign in the distal right mainstem bronchus/bronchus intermedius area and New heterogeneous hyperdense masslike opacity in the posterior right lower lobe, measuring approximately 8.7 x 6.3 cm . This finding is suspicious for lung cancer and the possibility of pulmonary hemorrhage is less likely. Noted the patient's INR was at 3.8 at time of admission is currently down to 2.2. We' ll hold off his anticoagulation and given vitamin K. The plan is to proceed with a diagnostic thoracentesis of the right lung to be followed by bronchoscopy. The patient is seen again today in follow-up 04/21/2016 on the regular medical floor. He is awake and alert in no acute distress. He denies any worsening shortness of breath, cough or congestion. His INR is currently 1.6. He has been afebrile. No leukocytosis. He is maintaining good O2 saturations in the mid 90s on room air. A thoracentesis was done today at the bedside. Approximately 600 mL's of serosanguineous fluid was removed. The patient is being seen again in follow-up on 04/22/2016, and the patient is now having no new complaints. No hemoptysis. He underwent a thoracentesis yesterday with total of 600 mL of fluid was aspirated from the right lung. The fluid cytology still pending for now. Meanwhile, due to concern of a lung mass , I'm going to set up this patient for a bronchoscopy for airway inspection and there is a very high consented the patient may have an underlying malignancy. I discussed this with the patient's was very much agreeable to the procedure. The patient is still off anticoagulation. No chest pain. He is nothing by mouth for now awaiting his procedure. On 04/23/2016, the patient is being seen in follow-up. The patient is resting comfortably in bed. Macroscopy was done yesterday and showed a mass obstructing the proximal bronchus intermedius causing atelectasis of the right middle lobe and the right lower lobe and the patient has a large right-sided pleural effusion. In any rate, were still awaiting the final path although there is a high suspicion for non-small cell lung cancer of squamous cell type. Final path is still pending. Meanwhile I consulted hematology oncology. Patient is tolerating diet. He denies having any shortness of breath. His spending most of the time in bed and does limited amount of activity. Performance status is poor. The patient was seen again today 04/24/2016 in follow-up. His pulmonary status is currently stable. He is maintaining good O2 saturations in the upper 90s on room air. His been afebrile. The pleural fluid was negative for malignant cells. Pathology is still pending in regards to the obstructing mass in the proximal bronchus intermedius post biopsy. On 04/26/2016 the patient remains stable. He was diagnosed having Squamous cell carcinoma as the patient was found to have a mass obstructing the proximal bronchus intermedius/distal right main bronchus area. He also has completed atelectasis of the right middle lobe and the right lower lobe with a pleural effusion that was drained and the fluid cytology was negative for malignancy. Performance status extremely poor.. No worsening shortness of breath. No other new complaints otherwise for now. On 04/27/2016, patient remains stable, he is a bit confused with his underlying dementia, he has a poor performance status, and I believe workup is initiated for possible referral to rehab facility. Patient was already seen by the oncologist, and he will continue to see him on outpatient basis. Patient does not seem to be in any respiratory distress today. Objective - Vital Signs Vital signs: Vital Signs Temp 98.8 F 04/27/16 07:00 Pulse 73 04/27/16 07:00 Resp 16 04/27/16 07:00 BP 118/79 04/27/16 07:00 Pulse Ox 93 L 04/27/16 07:00 Intake & Output 04/26/16 04/27/16 04/27/16 18:59 06:59 18:59 Intake Total 480 200 0 Output Total 345 375 Balance 135 -175 0 Weight 72.575 kg Intake: Oral 480 200 0 Output: Urine 345 375 Straight 300 Other: Voiding Method Indwelling Catheter Toilet Urinal # Voids 2 1 - Exam Physical Exam: Revealed a 70-year-old in no distress HEENT:[Neck is supple.] [No neck masses.] [No thyromegaly.] [No JVD.] Chest: [Diminished breath sounds at the bases especially at the right base] Cardiac Exam: [Normal S1 and S2, no S3 gallop, no murmur.] Abdomen: [Soft, nontender, no megaly, no rebound, no guarding, normal bowel sounds.] Extremities: [No clubbing, no edema, no cyanosis.] Neurological Exam: [No focal neurologic deficit.] - Labs CBC & Chem 7: 04/25/16 06:35 04/25/16 06:35 Labs: Abnormal Lab Results - Last 24 Hours (Table) 04/26/16 04/27/16 Range/Units 20:12 11:30 POC Glucose (mg/dL) 162 H (75-99) mg/dL Urine Protein 1+ H (Negative) Urine Blood Small H (Negative) Ur Leukocyte Esterase Small H (Negative) Urine RBC 18 H (0-5) /hpf Urine WBC 12 H (0-5) /hpf Urine Bacteria Rare H (None) /hpf Urine Mucus Occasional H (None) /hpf Microbiology - Last 24 Hours (Table) 04/21/16 13:43 Gram Stain - Final Pleural Fluid Body Fluid Culture - Final Assessment and Plan Plan: 1 squamous cell carcinoma of the lung with a large mass obstructing the proximal bronchus intermedius causing complete atelectasis of the right middle lobe and right lower lobe. The patient also has developed a pleural effusion that was aspirated and the pleural fluid cytology is negative. The CAT scan of the chest showed a complex heterogeneous right lung mass with a cutoff sign of the distal right mainstem bronchus/bronchus intermedius and a loculated right- sided pleural effusion. The patient presented with hemoptysis. 2 COPD 3 hemoptysis, currently inactive 4 weight-loss 5 REM behavioral disorder 6 restless leg syndrome 7 BPH 8 chronic atrial fibrillation 9 COPD 10 hypertension 11 pacemaker insertion 12 dementia Recommendation: Agree with discharge planning to rehab facility, follow-up on outpatient basis with Dr. Messina and with Dr. Garcia. Long-term prognosis is definitely poor. Time with Patient: Less than 30
[2016-05-01 13:22] LABS: Mis test requested (Non-blood) GLUCOSE PLEURAL FL
== END 2016-04-27 19:29 | DRG 180 ==
LOC: EC 22:12 → 3SUR 23:32
PROVIDERS: ADMIT Hospitalist; ATTEND Hospitalist
PROC: 0W993ZX Drainage of Right Pleural Cavity, Percutaneous Approach, Diagnostic (ICD-10-PCS; principal; 2016-04-21)
PROC: 0BB38ZZ Excision of Right Main Bronchus, Via Natural or Artificial Opening Endoscopic (ICD-10-PCS; 2016-04-22)
PROC: 0BJ08ZZ Inspection of Tracheobronchial Tree, Via Natural or Artificial Opening Endoscopic (ICD-10-PCS; 2016-04-22)
PROC: 0B938ZX Drainage of Right Main Bronchus, Via Natural or Artificial Opening Endoscopic, Diagnostic (ICD-10-PCS; 2016-04-22 13:30)
DX: C34.01 Malignant neoplasm of right main bronchus (principal); A41.50 Gram-negative sepsis, unspecified; G93.41 Metabolic encephalopathy; J18.9 Pneumonia, unspecified organism; E44.0 Moderate protein-calorie malnutrition; I31.3 Pericardial effusion (noninflammatory); F03.91 Unspecified dementia, unspecified severity, with behavioral disturbance; R04.2 Hemoptysis; J90 Pleural effusion, not elsewhere classified; J44.0 Chronic obstructive pulmonary disease with (acute) lower respiratory infection; J98.11 Atelectasis; R04.89 Hemorrhage from other sites in respiratory passages; E88.09 Other disorders of plasma-protein metabolism, not elsewhere classified; I48.2 Chronic atrial fibrillation; I10 Essential (primary) hypertension; Z66 Do not resuscitate; T45.515A Adverse effect of anticoagulants, initial encounter; F17.200 Nicotine dependence, unspecified, uncomplicated; R32 Unspecified urinary incontinence; D63.8 Anemia in other chronic diseases classified elsewhere; N40.0 Benign prostatic hyperplasia without lower urinary tract symptoms; R26.9 Unspecified abnormalities of gait and mobility; H54.7 Unspecified visual loss; G25.81 Restless legs syndrome; G47.52 REM sleep behavior disorder; E78.5 Hyperlipidemia, unspecified; H91.90 Unspecified hearing loss, unspecified ear; R59.1 Generalized enlarged lymph nodes; I67.9 Cerebrovascular disease, unspecified; R53.1 Weakness; Z95.0 Presence of cardiac pacemaker; Z79.82 Long term (current) use of aspirin; Z79.01 Long term (current) use of anticoagulants; Z88.0 Allergy status to penicillin; Z87.828 Personal history of other (healed) physical injury and trauma; Z91.81 History of falling; Z71.3 Dietary counseling and surveillance; Z79.52 Long term (current) use of systemic steroids; Z79.899 Other long term (current) drug therapy; Z68.25 Body mass index [BMI] 25.0-25.9, adult
CPT/HCPCS: 31625; 31629; 36415; 70450; 71010; 71020; 71260; 80048; 80053; 81001; 82550; 82553; 83615; 83735; 84132; 84155; 84157; 84484; 85025; 85610; 85730; 87070; 87086; 87205; 88108; 88173; 88305; 88341; 88342; 89050; 93005; 94640; 94760; 96365; 99285